=== PATIENT | female | born 1995 | race Caucasian/White ===

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

== ENCOUNTER 2017-07-13 20:00 | Inpatient (IN) | payer OTHER ==
[2017-07-13 21:25] LABS: Hematocrit 43 % (35-47); Hemoglobin 14.4 g/dl (12.0-16.0); Mean Corpuscular HGB Conc 33 g/dl (31-36); Mean Corpuscular Hemoglobin 28 pg (27-31); Mean Corpuscular Volume 83 fL (80-97); Mean Platelet Volume 8 um3 (7.4-10.4); Red Blood Count 5.18 10^6/ul (4.0-5.4); Red Cell Distribution Width 14 % (10.5-15); White Blood Count 14.6 10^3/ul (3.5-10.8)
[2017-07-13 21:36] LABS: ALT 18 U/L (7-52); AST 19 U/L (13-39); Albumin 4.5 g/dL (3.2-5.2); Alkaline Phosphatase 76 U/L (34-104); Anion Gap 9 mmol/L (2-11); BUN/Creatinine Ratio 14.7 (8-20); Blood Urea Nitrogen 11 mg/dL (6-24); CO2 Carbon Dioxide 23 mmol/L (22-32); Chloride 105 mmol/L (101-111); EGFR African American 126.7 (>60); EGFR Non-African American 98.5 (>60); Globulin 3.7 g/dL (2-4); Glucose 125 mg/dL (70-100); Potassium 3.6 mmol/L (3.5-5.0); Sodium 137 mmol/L (133-145); Total Protein 8.2 g/dL (6.4-8.9)
[2017-07-13 21:39] LABS: Acetaminophen < 15 mcg/mL; Alcohol < 10 mg/dL (<10); Salicylate < 2.50 mg/dL (<30)
[2017-07-13 23:32] LABS: Urine Bacteria 1+ (Absent); Urine Bilirubin Negative (Negative); Urine Glucose Negative (Negative); Urine Nitrite Negative (Negative)
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
[2017-07-13 23:49] LABS: Benzodiazepine Urine Screen None Detected (None Detect)
[2017-07-14] MEDS ORDERED: Acetaminophen TAB* 325 MG PO PRN (05:38)
[2017-07-14] MEDS ORDERED: Nicotine GUM* 2 MG PO PRN (05:38)
[2017-07-14] MEDS ORDERED: Al Hydrox/Mg Hydrox/Simet LIQ* 30 ML UDC PO PRN (05:38)
[2017-07-14] MEDS ORDERED: Nicotine Inhaler* 10 MG AMP INH PRN (05:38)
[2017-07-14] MEDS ORDERED: Mouth Piece, Nicotine* 1 EACH CARTRIDGE INH ONE (06:00)
[2017-07-14 08:18] VITALS: BP 102/41
--- NOTE | 2017-07-14 11:35 | PN ---
[facility]: Group Therapy Note - Service Type Service Type: [id number] Group Psychotherapy - Cognitive Behavioral Group Therapy ( CBT):Patient was attentive and participatory in CBT programming this morning, and remained in good behavioral control. Patient expressed positive insights regarding relevant treatment interventions and goals.
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
--- NOTE | 2017-07-15 06:23 | DS ---
CC: [facility]; Dr. 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 [place] II: Deferred. [place] III: Irritable bowel syndrome, gastroesophageal reflux disease and obesity. [place] IV: Stressors related to relationship break-up. [place] V: 67. CONDITION AT TIME OF DISCHARGE: Improved. The patient reports that her overdose attempt was impulsive in nature and immediately regretted the action. She induced vomiting and asked her grandmother to call the ambulance. She denies recent depression or anxiety. She denies stressors other than the sudden breakup of her relationship this past Wednesday. 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 She also wants to apply for a new job in the [employer] [facility] [place]. She lives with her grandmother and has for the past 15 years, she reports this to be a positive relationship. Her grandmother visited on the unit today and reports that she is not concerned about Katie's safety. She states that she has the rest of the week off from work and will be able to monitor her. She identifies that lots of family members have been supportive of Katie and encouraged her to avoid being dependant on relationships. Her grandmother, Breanna, reports that she has encouraged Katie to return to counseling to process her emotions. Katie is in agreement to do so and also to strengthen her coping mechanisms for stressful situations. MENTAL STATUS EXAM: The patient is obese, causally dressed in her own clothing. She is fairly well-kept. Hair dyed bright blonde and she is wearing glasses. She appears stated age. She is alert and oriented x3. She was cooperative with interview and answered questions fully. Her concentration is good. Her memory is 3/3. Her mood is "good." Affect is full. Speech is soft and articulate. Thought process is logical, coherent and goal-directed. Thought content: She denies SI, HI, , or SIB urges. She denies preoccupations or obsessions. Her insight and judgment is good. Her fund of knowledge is excellent. INSTRUCTIONS GIVEN TO THE PATIENT: She did not have any changes in her current outpatient medications. She will continue Prilosec through her primary care provider and [id number] Tums as needed. She denied nicotine replacement for tobacco cessation. DIET: Regular. ACTIVITY: Ambulation as tolerated. As stated above, she declined tobacco cessation and there are no pending labs or diagnostic studies at the time of discharge. HOSPITAL COURSE: A. Reason for admission: The patient was brought to the ER via ambulance after an overdose attempt on an old prescription of Trazodone. She immediately induced vomiting and asked her grandmother to call the ambulance. Upon arrival to the ER, she identified this was an impulsive decision and was agreeable to admission to the Psychiatric Unit in hopes of admission. B. Psychiatric treatment rendered: The patient was admitted to the Behavioral Services Unit on voluntary status. She is a full code status. She is placed on 15 minutes observation for safety, and treatment plan was initiated. Upon awakening, she participated in therapeutic milieu and groups this morning. She agreed to sign releases of information for outpatient providers. [facility] had prior outpatient care. She stated understanding and need to utilize [facility] if [facility] not [facility]. She also signed release for [facility]. She signed a release of information for primary care provider, Dr. Mike. While grandmother, Breanna, was visiting this policy writer sales reviewed safety precautions in the home including removing access to store, to [id number] medications. Breanna reported she had already removed medications from the bathroom and are locked in her bedroom. She denies there are weapons or firearms in the home. The patient was discharged to her grandmother by nursing staff and given discharge instructions. MIA LYONS NP [id number]/[facility] #: [id number] BRENT
== END 2017-07-14 14:05 | disposition home or self-care (01) | DRG 755 ==
LOC: ED 20:00 → BSU 07-14 05:38
PROVIDERS: ADMIT Psychiatry & Neurology Psychiatry; ATTEND Psychiatry & Neurology Psychiatry
PROC: GZHZZZZ Group Psychotherapy (ICD-10-PCS; principal; 2017-07-14)
DX: F43.24 Adjustment disorder with disturbance of conduct (principal); E66.01 Morbid (severe) obesity due to excess calories; J45.909 Unspecified asthma, uncomplicated; K21.9 Gastro-esophageal reflux disease without esophagitis; K58.9 Irritable bowel syndrome, unspecified; G43.909 Migraine, unspecified, not intractable, without status migrainosus; F90.9 Attention-deficit hyperactivity disorder, unspecified type; F41.0 Panic disorder [episodic paroxysmal anxiety]; F32.9 Major depressive disorder, single episode, unspecified; T43.212A Poisoning by selective serotonin and norepinephrine reuptake inhibitors, intentional self-harm, initial encounter; F43.10 Post-traumatic stress disorder, unspecified; F63.3 Trichotillomania; F50.89 Other specified eating disorder; F12.90 Cannabis use, unspecified, uncomplicated; Z72.0 Tobacco use; Z88.6 Allergy status to analgesic agent; Z88.0 Allergy status to penicillin; Z88.8 Allergy status to other drugs, medicaments and biological substances; Z91.018 Allergy to other foods; Z82.49 Family history of ischemic heart disease and other diseases of the circulatory system; Y92.009 Unspecified place in unspecified non-institutional (private) residence as the place of occurrence of the external cause; Z81.1 Family history of alcohol abuse and dependence; Z81.8 Family history of other mental and behavioral disorders
CPT/HCPCS: 36415; 80053; 80307; 80320; 80329; 81003; 81015; 83605; 84702; 85025; 87086; 93005; A9270-GY; G0480

== ENCOUNTER 2017-11-03 17:34 | Emergency (ER) | payer OTHER ==
[2017-11-03 17:47] VITALS: BP 146/67
[2017-11-03] MEDS ORDERED: Albuterol/Ipratropium NEB.SOL* Albuterol 2.5 MG/Ipratropium 0.5 MG 3 ML INH ONE (18:17)
[2017-11-03] MEDS ORDERED: Azithromycin TAB* 250 MG PO ONE (18:21)
--- NOTE | 2017-11-03 18:30 | UC ---
Respiratory Complaint HPI - HPI Summary HPI Summary: 22 year old female with history of asthma with no prior intubation here with fever and chills for the past one week but yesterday symptoms worsened in the past few days. Reports cough worse at night, non-stop, paroxysmal with associated one episode of vomiting. Her mother had recent URI that resolved. Otherwise no other complaints. - History of Current Complaint Chief Complaint: UCRespiratory Stated Complaint: COUGH, FEVER, TRIED Time Seen by Provider: 11/03/17 17:56 Hx Obtained From: Patient Hx Last Menstrual Period: 2 months ago Onset/Duration: Gradual Onset Timing: Constant Severity Initially: Mild Severity Currently: Moderate Character: Cough: Productive Aggravating Factors: Recumbent Position Alleviating Factors: Spontaneous Resolution Associated Signs And Symptoms: Positive: Fever, Chills, URI, Nasal Congestion, Sinus Discomfort - Allergies/Home Medications Allergies/Adverse Reactions: Allergies Allergy/AdvReac Type Severity Reaction Status Date / Time Penicillins Allergy Severe Hives Verified 11/03/17 17:45 Ketorolac Tromethamine Allergy Unknown Palpitation Verified 11/03/17 17:45 [From Toradol] s Adhesive Tape Allergy Rash Verified 11/03/17 17:45 Codeine Allergy GI Upset Verified 11/03/17 17:45 CRANBERRIES Allergy Hives Uncoded 11/03/17 17:45 PMH/Surg Hx/FS Hx/Imm Hx - Surgical History Surgical History: Yes Surgery Procedure, Year, and Place: 09/03 LAPARSCOPIC ABDOMEN. TONSILLECTOMY 2016 DR PALAFOX - Family History Known Family History: Positive: None, Hypertension - Social History Alcohol Use: None Substance Use Type: Marijuana Substance Use Comment - Amount & Last Used: OCCASIONALLY- LAST 2 MONTHS AGO Smoking Status (MU): Current Every Day Smoker Amount Used/How Often: 1/2 PPD Have You Smoked in the Last Year: Yes When Did the Patient Quit Smoking/Using Tobacco: 6 MONTHS AGO - Immunization History Most Recent Influenza Vaccination: "Years Ago" Most Recent Pneumonia Vaccination: Never Vaccination Up to Date: Yes Review of Systems Constitutional: Negative, Fever Respiratory: Cough Gastrointestinal: Vomiting Genitourinary: Negative All Other Systems Reviewed And Are Negative: Yes Physical Exam Triage Information Reviewed: Yes Appearance: Well-Appearing, No Pain Distress, Well-Nourished Vital Signs: Initial Vital Signs Temp 36.4 C 11/03/17 17:42 Pulse 120 11/03/17 17:42 Resp 18 11/03/17 17:42 BP 146/67 11/03/17 17:42 Pulse Ox 98 11/03/17 17:42 ENT: Positive: Pharyngeal erythema, Nasal congestion, Sinus tenderness Neck: Positive: Supple, Nontender, No Lymphadenopathy Respiratory: Positive: Chest non-tender, Lungs clear, No respiratory distress, Other: - Paroxysmal cough Cardiovascular: Positive: RRR, No Murmur Abdominal Exam: Normal Musculoskeletal Exam: Normal Neurological Exam: Normal UC Diagnostic Evaluation - Laboratory O2 Sat by Pulse Oximetry: 98 Respiratory Course/Dx - Course Course Of Treatment: Cough thats c/s pertussis. PCR pertusis given. Will treat with azithro for suspected pertussis +/- sinusitis - Differential Dx/Diagnosis Differential Diagnosis/HQI/PQRI: Laryngitis, Lower Resp Infection Provider Diagnoses: Cough Discharge - Discharge Plan Condition: Good Disposition: HOME Prescriptions: Azithromycin TAB* [Zithromax TAB (Z-ZACKARY) 250 mg #6 tabs] 250 mg PO DAILY #4 tab Benzonatate CAP* [Tessalon 100 MG CAP*] 100 mg PO TID PRN #20 cap PRN Reason: Cough Patient Education Materials: Pertussis (ED), Sinusitis (ED) Forms: *Work Release Referrals: Saadia Mike DO [Primary Care Provider] -
== END 2017-11-03 18:46 | disposition home or self-care (01) ==
LOC: UCEAST 17:34
DX: R05 Cough (principal); R50.9 Fever, unspecified; R11.10 Vomiting, unspecified; R09.81 Nasal congestion; Z88.5 Allergy status to narcotic agent; Z88.0 Allergy status to penicillin; Z91.048 Other nonmedicinal substance allergy status; Z87.891 Personal history of nicotine dependence
CPT/HCPCS: 87798; 99212; A9270-GY; G0463

== ENCOUNTER 2018-01-06 12:52 | Emergency (ER) | payer SELFPAY ==
[2018-01-06 13:06] VITALS: BP 134/84
--- OUTSIDE RECORDS SUMMARY | 2018-01-06 13:18 | XMS REPORT ---
:1995 External Reference #:[id number] Author Organization [facility] Address [address] [place] [address] [place] [address] Phone [phone] Care Team Providers Name Role Phone Saadia Mike DO Primary Care Physician Unavailable Payers Type Date Identification Numbers Payment Provider Subscriber Commercial Effective: Policy Number: Gwyn MGCastillo Jan Contreras 2017 [id number] Medicaid PayID: [id number] [address] [[phone]] [place] [address] Problems Date Description Provider Status Onset: 08/04/2011 Irregular periods Saadia Mike D.O. 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 Active known physiol cond Onset: 11/29/2015 Mild intermittent asthma Saadia Mike D.O. Active Onset: 11/29/2015 Body mass index 40+ - severely obese Saadia Mike D.O. Active Onset: 08/31/2016 Anxiety disorder Saadia Mike D.O. Active Onset: 08/31/2016 Depressive disorder Saadia Mike D.O. Active Onset: 08/31/2016 Functional abdominal pain syndrome Saadia Mike D.O. Active Onset: 09/22/2016 Allergic rhinitis Saadia Mike D.O. Active Onset: 09/22/2016 Generalized anxiety disorder Saadia Mike D.O. Active Onset: 08/04/2011 Morbid obesity Saadia Mike D.O. Inactive Inactive: 02/13/2013 Family History Date Family Member(s) Problem(s) Comments General Grandma does not know about her mother's history, but there is no history of DM or PCOS on dad's side.Jan knows that her MGM has DM. Social History Type Date Description Comments Lives With Negative For Older Sister Lives With Paternal Grandmother Smoking Light tobacco smoker (10 or fewer cigarettes/day) Allergies, Adverse Reactions, Alerts Date Description Reaction Status Severity Comments 08/10/2012 Penicillin active 08/10/2012 Cranberries Urticaria active 08/27/2014 Codeine Nausea and Vomiting active 09/30/2016 Cephalexin Urticaria active Mild 08/10/2012 NKDA inactive Medications Medication Date Status Form Strength Qnty SIG Indications Ordering Provider Ventolin HFA 12/08/ Active Aerosol 108(90Base 18gm 2 puffs J45.20 Saadia 2017 ) mcg/Act with spacer Rashid, every 4-6 D.O. hours as needed Azithromycin 12/08/ Hx Tablets 250mg 6tabs 2 tabs J22 Saadia 2017 - today then Rashid, tablet D.O. 2018 daily for 4 days Albuterol 12/26/ Active Nebulizer (2.5mg/3ML 75ml 1 unit dose J45.20 Saadia Sulfate 2014 ) 0.083% via Rashid, nebulizer D.O. every 4 hours as needed Nebulizer 12/26/ Active Kit 1units use as J45.20 Saadia Compressor/Jaquan 2014 directed alicia Mike/7' D.O. Tubing/Aerosol T/Mthpiece Aerochamber 12/23/ Active Misc 1units or similar J45.20 Saadia Plus Flow Vu 2011 use with dequan Mike as D.O. directed Mirena (52 MG) / Active IUD 20mcg/24HR N92.6 Unknown 0000 Cephalexin 09/23/ Hx Tablets 500mg 30tabs 1 by mouth K04.7 Saadia 2015 - three times Rashid, 09/30/ daily D.O. 2016 Clindamycin 09/22/ Hx Capsules 300mg 30caps 1 by mouth K04.7 Saadia HCL 2016 - three times Rashid, 09/23/ daily x 10 D.O. 2016 days Ondansetron 03/11/ Hx Tablets 8mg 10tabs 1 tab A08.39 Bj HCL 2016 - orally 8 Shrivasta 03/15/ hourly as Ewelina moe 2016 needed Citalopram 07/18/ Hx Tablets 40mg 90tabs 1/2 tablet F41.1 Saadia Hydrobromide 2014 - daily for 7 Rashid, 12/21/ days then D.O. 2017 increase to 1 tablet daily F32.9 Cefdinir 07/18/2015 - Hx Capsules 300mg 20caps 2 by mouth 463 Saadia 07/28/2015 once daily Rashid D.O. x 10d Citalopram 02/12/2015 - Hx Tablets 20mg 45tabs 1 1/2 by 300.02 Saadia Hydrobromide 07/18/2015 mouth Rashid, D.O. every day 311 Tamiflu 12/26/2014 - Hx Capsules 75mg 10caps 1 by mouth 487.1 Saadia 12/31/2014 twice daily Rashid, for 5 days D.O. Butalbital/Acetami 11/30/2014 - Hx Tablets 50-325 30tabs 1-2 tablets R51 [facility] nophen/Caffeine 04/03/2016 -40mg by mouth Rashid, every 6 D.O. hours as needed for headache Methylphenidate 11/30/2014 - Hx Tablets ER 18mg 30tabs 1 by mouth F90.2 Saadia HCL ER 09/22/2016 24HR every day Rashid D.O. Promethazine HCL 09/20/2014 - Hx Tablets 25mg 30tabs 1 by mouth Saadia 02/28/2015 every 6 Rashid, hours as D.O. needed for nausea/migr [facility] 09/14/2014 - Hx As 724.5 Saadia 11/29/2014 indicated Rashid, for back D.O. pain Trazodone HCL 08/27/2014 - Hx Tablets 100mg 60tabs 2 tablets 307.41 Saadia 11/29/2015 at bedtime Rashid DPattieOPattie Benefiber 12/14/2013 - Hx Powder 529gm use bid 789.07 Vazquez Oliveira. 05/11/2014 ALEX Vega M.D. Culturelle 12/14/2013 - Hx Capsules 30caps 1 po qd 789.07 Vazquez Y. 01/13/2014 ALEX Vega M.D. Tramadol HCL 12/01/2013 - Hx Tablets 50mg 60tabs 1 every 8 789.07 Saadia 12/23/2013 hours as Rashid, needed for D.O. pain Celexa 11/09/2013 - Hx Tablets 10mg 45tabs 1 1/2 300.02 [facility] 02/12/2015 tablet Rashid, daily D.O. 311 Celebrex 11/09/2013 - Hx Capsules 100mg 60caps 1 by mouth 789.07 [facility] 05/11/2014 twice daily Rashid, D.O. Hibiclens 10/11/2013 - Hx Liquid 4% 236ml Use to wash [facility] 10/12/2013 insicion site Rashid, twice daily D.O. then dress with antibiotic cream Lotrisone 10/11/2013 - Hx Cream 1-0.05% 45gm apply over to 110.9 [facility] 10/25/2013 rash twice Rashid, daily for 14 D.O. days Proair HFA 09/30/2013 - Hx Aerosol 108(90B 17gm 2 puffs with J45.20 [facility] 12/08/2017 ase) spacer every Rashid, mcg/Act 4-6 hours as D.O. needed Ondansetron HCL 09/26/2013 - Hx Tablets 8mg 60tabs 1 tablet R11.0 [facility] 02/27/2016 every 8 hours Rashid, as needed for D.O. nausea Cephalexin 09/26/2013 - Hx Capsules 500mg 30caps 1 by mouth 998.59 [facility] 10/06/2013 three daily Rashid, for 10 days D.O. Prilosec OTC 08/25/2013 - Hx Tablets DR 20mg 30tabs 1 by mouth R10.84 [facility] 02/27/2016 daily Rashid, D.O. Tramadol HCL 08/25/2013 - Hx Tablets 50mg 30tabs 1 every 8 789.07 [facility] 11/09/2013 hours as Rashid, needed for D.O. pain Clonazepam 08/25/2013 - Hx Tablets 0.5mg 30tabs 1 tablet 300.02 [facility] 09/04/2014 every 8 hours Rashid, as needed for D.O. anxiety Nexium 08/04/2013 - Hx Capsules DR 40mg 30caps 1 po qam 789.07 Vazquez OliveiraPattie 08/25/2013 ALEX Vega M.D. Jolessa 04/24/2013 - Hx Tablets 0.15-0. 91tabs use as N92.6 [facility] 09/22/2016 03mg directed Rashid, D.O. Omeprazole 04/24/2013 - Hx Tablets DR 20mg 28tabs Take 1 Tab 2 789.07 [facility] 08/04/2013 Times A Day Chip VegaP.N.P. Ondansetron Odt 02/03/2013 - Hx Tablets 8mg 20tabs 1 by mouth 787.03 [facility] 05/22/2013 Dispers every 6-8 [place], hours as C.P.N.P. needed for nausea or vomiting Prilosec OTC 02/03/2013 - Hx Tablets DR 20mg 28tabs 1 by mouth 789.07 [facility] 04/24/2013 twice daily Chip VegaP.N.P. Azithromycin 01/31/2013 - Hx Tablets 250mg 6tabs 2 tabs today 466.0 Unknown 02/05/2013 then 1 tablet daily for 4 days Prednisone 01/31/2013 - Hx Tablets 20mg 10tabs 2 tabs daily 466.0 Unknown 02/05/2013 for 5 days Trazodone HCL 08/10/2012 - Hx Tablets 50mg 30tabs 1/2 tab by 307.41 [facility] 08/27/2014 mouth at Rashid, bedtime D.O. Ventolin HFA 08/10/2012 - Hx Aerosol 108(90B 36gm or least 493.90 Saadia 09/30/2013 ase) expensive Rashid, mcg/ac alternative D.O. 2 puffs with spacer every 4-6 hours as needed Proair HFA 12/23/2011 - Hx Aerosol 108(90B 2units 2 puffs with 493.90 Saadia 08/10/2012 ase) spacer every Rashid, mcg/ac 4-6 hours as D.O. needed Seasonale 12/08/2011 - Hx Tablets 0.15-0. 84tabs use as 626.4 Saadia 04/24/2013 03mg directed Leelee Mike Maxair 12/08/2011 - Hx Aerosol 200mcg/ 14gm 1 puff q4h as 493.90 Saadia Autohaler 12/23/2011 Inh needed Leelee Mike Michelle 08/04/2011 - Hx Tablets 3-0.02m 28tabs 1 po qd 626.4 Saadia 12/08/2011 g Leelee Mike Oxistat 08/04/2011 - Hx Cream 1% 60gm Apply 110.5 Saadia 09/03/2011 topically qd Leelee Mike Econazole 07/30/2010 - Hx Cream 1% 30gm apply 110.5 [facility] Nitrate 08/13/2010 topically qd Rashid - bid Castillo.Nita Concerta 08/12/2006 - Hx Tablets ER 18mg 30tabs 1 by mouth 314.01 Saadia 11/30/2014 daily Leelee Mike Strattera - Hx Caps 40mg 30caps take 1 314.01 [facility] 12/23/2010 capsule once Rashid daily D.OPattie Hydrocodone/Kevin - Hx Tablets 5-325mg 30tabs 1-2 tablets Unknown taminophen 10/25/2013 by mouth every 6 hours as needed for pain Fiber Select - Hx Chewtabs 4 by mouth 789.07 Unknown Gummies 11/22/2016 daily Naproxen Sodium - Hx Tablets 550mg 30tabs take one [facility] 11/22/2016 tablet by Rashid, mouth twice a D.O. day as needed for pain Alavert - Hx Tablets 10mg Take as J30.9 Unknown 11/22/2017 Dispers needed for allergies Immunizations CPT Code Status Date Vaccine Lot # [id number] Given 08/27/2014 Hepatitis B Imm Age 0 to 19yr [id number] 56415 Given 08/27/2014 Meningococcal A,C,Y,W135 (Menactra) Preservative [id number] Free 05567 Given 12/03/2010 HPV 4 Gardasil 4 [id number] 53183 Given 07/29/2010 HPV 4 Gardasil 4 [id number] 28769 Given 07/08/2009 HPV 4 Gardasil 4 [id number] 15386 Given 07/08/2009 Meningococcal A,C,Y,W135 (Menactra) Preservative [id number] Free 44534 Given 07/08/2009 Varicella (Chicken Pox) Immunization [id number] 22050 Given 07/17/2008 TdaP Immunization Age 7+ [id number] 13003 Given 07/18/2001 DTaP Immunization under age 7 98223 Given 07/18/2001 Poliomyelitis Immunization 94616 Given 07/18/2001 MMR Virus Immunization 35224 Given 09/22/1998 DTaP Immunization under age 7 54949 Given 09/22/1998 Hib Vaccine 32078 Given 09/22/1998 Poliomyelitis Immunization 12026 Given 09/22/1998 MMR Virus Immunization 71102 Given 05/22/1998 Varicella (Chicken Pox) Immunization 39038 Given 1997 DTaP Immunization under age 7 90310 Given 1997 Hib Vaccine 78736 Given 1997 Poliomyelitis Immunization 84691 Given 1997 Hepatitis B Imm Age 0 to 19yr 13457 Given 1997 Poliomyelitis Immunization 94107 Given 1997 DTaP Immunization under age 7 11965 Given 1997 Hib Vaccine 03744 Given 1997 DTaP Immunization under age 7 60715 Given 1997 Hib Vaccine 48346 Given 1997 Hepatitis B Imm Age 0 to 19yr 95661 Given 1997 Poliomyelitis Immunization 74657 Given 1997 Hepatitis B Imm Age 0 to 19yr 71734 Refused 11/29/2015 Flu Inj Quadrivalent .5ml Preserve Free Vital Signs Date Vital Result Comment 12/08/2017 Weight 274.00 lb with boots Weight in kg's 124.286 Body Temperature 99.7 F Heart Rate 93 /min O2 % BldC Oximetry 98 % 09/22/2016 Height 63.75 inches 5'3.75" Weight 302.00 lb Weight in kg's 136.987 BMI (Body Mass Index) 52.2 kg/m2 Body Mass Index Percentile 3 % 03/11/2016 Weight 302.00 lb Weight in kg's 136.987 Weight Percentile >97th Body Temperature 98.7 F Heart Rate 72 /min BP Systolic 138 mmHg BP Diastolic 82 mmHg Blood Pressure Percentile 0 % 11/29/2015 Height 63.75 inches 5'3.75" Height Percentile 42 % Weight 304.00 lb Weight in kg's 137.894 Weight Percentile >97th Heart Rate 111 /min BP Systolic 132 mmHg BP Diastolic 73 mmHg Blood Pressure Percentile 97 % BMI (Body Mass Index) 52.6 kg/m2 Body Mass Index Percentile 99 % O2 % BldC Oximetry 98 % 07/18/2015 Height 64 inches 5'4" Height Percentile 46 % Weight 305.38 lb Weight in kg's 138.518 Weight Percentile >97th Heart Rate 106 /min BP Systolic 135 mmHg BP Diastolic 76 mmHg Blood Pressure Percentile 98 % BMI (Body Mass Index) 52.4 kg/m2 Body Mass Index Percentile 99 % 05/08/2015 Height 63.75 inches 5'3.75" Height Percentile 43 % Weight 304.00 lb Weight in kg's 137.894 Weight Percentile >97th Heart Rate 94 /min BP Systolic 144 mmHg BP Diastolic 76 mmHg Blood Pressure Percentile 99 % BMI (Body Mass Index) 52.6 kg/m2 Body Mass Index Percentile 99 % 12/26/2014 Weight 289.00 lb Weight in kg's 131.090 Weight Percentile >97th Body Temperature 99.6 F Heart Rate 110 /min O2 % BldC Oximetry 97 % 11/30/2014 Weight 292.00 lb Weight in kg's 132.451 Weight Percentile >97th Body Temperature 98.2 F Heart Rate 68 /min 09/14/2014 Weight 284.50 lb without leg brace Weight in kg's 129.049 Weight Percentile >97th Heart Rate 100 /min BP Systolic 115 mmHg BP Diastolic 78 mmHg Blood Pressure Percentile 0 % 08/27/2014 Height 64 inches 5'4" Height Percentile 48 % Weight 278.50 lb Weight in kg's 126.328 Weight Percentile >97th Heart Rate 110 /min BP Systolic 125 mmHg BP Diastolic 72 mmHg Blood Pressure Percentile 89 % BMI (Body Mass Index) 47.8 kg/m2 Body Mass Index Percentile 99 % 05/11/2014 Height 64 inches 5'4" Height Percentile 48 % Weight 267.00 lb Weight in kg's 121.111 Weight Percentile >97th Body Temperature 99.6 F Heart Rate 104 /min BP Systolic 119 mmHg BP Diastolic 79 mmHg Blood Pressure Percentile 75 % BMI (Body Mass Index) 45.8 kg/m2 Body Mass Index Percentile 99 % 03/08/2014 Height 64 inches 5'4" Height Percentile 48 % Weight 264.00 lb Weight in kg's 119.75 Weight Percentile >97th Heart Rate 122 /min BP Systolic 125 mmHg BP Diastolic 81 mmHg Blood Pressure Percentile 89 % BMI (Body Mass Index) 45.3 kg/m2 Body Mass Index Percentile 99 % 01/18/2014 Weight 254.00 lb Weight in kg's 115.21 Weight Percentile >97th Body Temperature 98.2 F BP Systolic 122 mmHg BP Diastolic 89 mmHg Blood Pressure Percentile 0 % 01/09/2014 Height 64 inches 5'4" Height Percentile 48 % Weight 255.00 lb Weight in kg's 115.66 Weight Percentile >97th Body Temperature 99.3 F Heart Rate 108 /min BP Systolic 128 mmHg BP Diastolic 82 mmHg Blood Pressure Percentile 94 % BMI (Body Mass Index) 43.8 kg/m2 Body Mass Index Percentile 99 % O2 % BldC Oximetry 97 % 12/14/2013 Height 64.25 inches 5'4.25" Height Percentile 52 % Weight 254.00 lb Weight in kg's 115.21 Weight Percentile >97th Heart Rate 102 /min BP Systolic 138 mmHg BP Diastolic 87 mmHg Blood Pressure Percentile 99 % BMI (Body Mass Index) 43.3 kg/m2 Body Mass Index Percentile 99 % 12/01/2013 Height 64.25 inches 5'4.25" Height Percentile 52 % Weight 249.00 lb Weight in kg's 112.94 Weight Percentile >97th Heart Rate 92 /min BP Systolic 128 mmHg BP Diastolic 81 mmHg Blood Pressure Percentile 93 % BMI (Body Mass Index) 42.4 kg/m2 Body Mass Index Percentile 99 % 11/09/2013 Weight 246.00 lb Weight in kg's 111.586 Weight Percentile >97th Body Temperature 97.8 F Heart Rate 91 /min BP Systolic 125 mmHg BP Diastolic 83 mmHg Blood Pressure Percentile 0 % 10/11/2013 Weight 249.00 lb Weight in kg's 112.946 Weight Percentile >97th Body Temperature 98.1 F BP Systolic 132 mmHg BP Diastolic 78 mmHg Blood Pressure Percentile 0 % 09/26/2013 Weight 244.00 lb Weight in kg's 110.678 Weight Percentile >97th Body Temperature 98.1 F Heart Rate 99 /min BP Systolic 127 mmHg BP Diastolic 80 mmHg Blood Pressure Percentile 0 % 08/25/2013 Height 64 inches 5'4" Height Percentile 49 % Weight 244.00 lb Weight in kg's 110.67 Weight Percentile >97th Heart Rate 89 /min BP Systolic 118 mmHg BP Diastolic 82 mmHg Blood Pressure Percentile 73 % BMI (Body Mass Index) 41.9 kg/m2 Body Mass Index Percentile 99 % 08/09/2013 Height 64.25 inches 5'4.25" Height Percentile 53 % Weight 246.00 lb Weight in kg's 111.58 Weight Percentile >97th Heart Rate 104 /min BP Systolic 130 mmHg BP Diastolic 72 mmHg Blood Pressure Percentile 95 % BMI (Body Mass Index) 41.9 kg/m2 Body Mass Index Percentile 99 % 08/04/2013 Weight 246.00 lb Weight in kg's 111.58 Weight Percentile >97th Body Temperature 96.8 F Heart Rate 100 /min BP Systolic 130 mmHg BP Diastolic 80 mmHg Blood Pressure Percentile 0 % O2 % BldC Oximetry 97 % 02/13/2013 Height 64 inches 5'4" Height Percentile 51 % Weight 239.00 lb Weight in kg's 108.410 Weight Percentile >97th Heart Rate 104 /min BP Systolic 136 mmHg BP Diastolic 80 mmHg Blood Pressure Percentile 99 % BMI (Body Mass Index) 41.0 kg/m2 Body Mass Index Percentile 99 % 02/03/2013 Weight 237.50 lb in gown Weight in kg's 107.730 Weight Percentile >97th Body Temperature 97.9 F Blood Pressure Percentile 0 % 08/10/2012 Height 64 inches 5'4" Height Percentile 53 % Weight 234.00 lb Weight in kg's 106.142 Weight Percentile >97th Heart Rate 76 /min BP Systolic 136 mmHg BP Diastolic 96 mmHg Blood Pressure Percentile 99 % BMI (Body Mass Index) 40.2 kg/m2 Body Mass Index Percentile 99 % 03/08/2012 Height 64 inches 5'4" Height Percentile 56 % Weight 252.00 lb Weight in kg's 114.307 Weight Percentile >97th BP Systolic 140 mmHg BP Diastolic 78 mmHg Blood Pressure Percentile 99 % BMI (Body Mass Index) 43.3 kg/m2 Body Mass Index Percentile 99 % 12/08/2011 Height 64 inches 5'4" Height Percentile 58 % Weight 243.00 lb Weight in kg's 110.225 Weight Percentile >97th BP Systolic 140 mmHg BP Diastolic 76 mmHg Blood Pressure Percentile 99 % BMI (Body Mass Index) 41.7 kg/m2 Body Mass Index Percentile 99 % 10/05/2011 Height 64 inches 5'4" Height Percentile 60 % Weight 247.00 lb Weight in kg's 112.039 Weight Percentile >97th BP Systolic 140 mmHg BP Diastolic 84 mmHg Blood Pressure Percentile 99 % BMI (Body Mass Index) 42.4 kg/m2 Body Mass Index Percentile 99 % 08/04/2011 Height 64 inches 5'4" Height Percentile 61 % Weight 245.00 lb Weight in kg's 111.132 Weight Percentile >97th Heart Rate 88 /min BP Systolic 98 mmHg BP Diastolic 50 mmHg Blood Pressure Percentile 12 % BMI (Body Mass Index) 42.0 kg/m2 Body Mass Index Percentile 99 % 07/29/2010 Height 63.25 inches 5'3.25" Height Percentile 67 % Weight 237.00 lb Weight in kg's 107.503 Weight Percentile >97th Heart Rate 80 /min BP Systolic 120 mmHg BP Diastolic 76 mmHg Blood Pressure Percentile 85 % BMI (Body Mass Index) 41.6 kg/m2 Body Mass Index Percentile 99 % 07/08/2009 Height 62.25 inches 5'2.25" Height Percentile 80 % Weight 198.00 lb Weight in kg's 89.813 Weight Percentile >97th Heart Rate 64 /min BP Systolic 130 mmHg BP Diastolic 70 mmHg Blood Pressure Percentile 98 % BMI (Body Mass Index) 35.9 kg/m2 Body Mass Index Percentile 99 % 01/09/2009 Height 62.5 inches 5'2.50" Height Percentile 91 % Weight 179.00 lb Weight in kg's 81.194 Weight Percentile >97th BP Systolic 114 mmHg BP Diastolic 68 mmHg BMI (Body Mass Index) 32.2 kg/m2 Body Mass Index Percentile 97 % 04/06/2008 Weight 156.00 lb Weight in kg's 70.762 Weight Percentile >97th BP Systolic 140 mmHg BP Diastolic 70 mmHg 02/08/2008 Weight 145.00 lb Weight in kg's 65.772 Weight Percentile >95th Body Temperature 99.0 F 08/04/2007 Height 58.5 inches 4'10.50" Height Percentile 91 % Weight 126.00 lb Weight in kg's 57.154 Weight Percentile >95th Heart Rate 96 /min BP Systolic 98 mmHg BP Diastolic 54 mmHg BMI (Body Mass Index) 25.9 kg/m2 Body Mass Index Percentile 95 % 12/02/2004 Height 50 inches 4'2" Height Percentile 68 % Weight 65.00 lb Weight in kg's 29.484 Weight Percentile 89th BMI (Body Mass Index) 18.3 kg/m2 Body Mass Index Percentile 92 % Results Test Date Test Result H/L Range Note Bordetella PCR 11/03/2017 Bordetella Source Nasopharyngeal s <SEE 1 NOTE> Bordetella pertussis PCR Negative 2 Bordetella parapertussis PCR Negative 3 Urine Drug SCR ED 07/13/2017 Amphetamine Ur Screen None Detected None Detect & [facility] Barbiturates Urine Screen None Detected None Detect Benzodiazepine Urine Screen None Detected None Detect Urine Cannabinoids Screen None Detected None Detect Urine Cocaine Screen None Detected None Detect Urine Opiates Screen None Detected None Detect Urine Phencyclidine Screen None Detected None Detect 4 CBC Auto Diff 07/13/2017 White Blood Count 14.6 10^3/uL High 3.5-10.8 Red Blood Count 5.18 10^6/uL 4.0-5.4 Hemoglobin 14.4 g/dL 12.0-16.0 Hematocrit 43 % 35-47 Mean Corpuscular Volume 83 fL 80-97 Mean Corpuscular Hemoglobin 28 pg 27-31 Mean Corpuscular HGB Conc 33 g/dL 31-36 Red Cell Distribution Width 14 % 10.5-15 Platelet Count 377 10^3/uL 150-450 Mean Platelet Volume 8 um3 7.4-10.4 Abs Neutrophils 11.1 10^3/uL High 1.5-7.7 Abs Lymphocytes 2.1 10^3/uL 1.0-4.8 Abs Monocytes 0.9 10^3/uL High 0-0.8 Abs Eosinophils 0.5 10^3/uL 0-0.6 Abs Basophils 0 10^3/uL 0-0.2 Abs Nucleated RBC 0 10^3/uL Granulocyte % 75.7 % 38-83 Lymphocyte % 14.4 % Low 25-47 Monocyte % 6.0 % 1-9 Eosinophil % 3.6 % 0-6 Basophil % 0.3 % 0-2 Nucleated Red Blood Cells % 0 Laboratory test finding 07/13/2017 Lactic Acid 2.1 mmol/L High 0.5-2.0 5 Comp Metabolic Panel 07/13/2017 Sodium 137 mmol/L 133-145 Potassium 3.6 mmol/L 3.5-5.0 Chloride 105 mmol/L 101-111 Co2 Carbon Dioxide 23 mmol/L 22-32 Anion Gap 9 mmol/L 2-11 Glucose 125 mg/dL High 70-100 Blood Urea Nitrogen 11 mg/dL 6-24 Creatinine 0.75 mg/dL 0.51-0.95 BUN/Creatinine Ratio 14.7 8-20 Calcium 10.0 mg/dL 8.6-10.3 Total Protein 8.2 g/dL 6.4-8.9 Albumin 4.5 g/dL 3.2-5.2 Globulin 3.7 g/dL 2-4 Albumin/Globulin Ratio 1.2 1-3 Total Bilirubin 0.30 mg/dL 0.2-1.0 Alkaline Phosphatase 76 U/L 34-104 Alt 18 U/L 7-52 Ast 19 U/L 13-39 Egfr Non- 98.5 >60 Egfr 126.7 >60 6 Laboratory test finding 07/13/2017 Acetaminophen < 15 g/mL 7 Alcohol < 10 mg/dL <10 Salicylate < 2.50 mg/dL <30 HCG < 0.60 mIU/mL 8 Urine Culture And Sensitivities SEE RESULT BELOW 9 Laboratory test 05/27/2016 (HCG) Negative Negative 10 finding Urine Laboratory test 04/01/2016 Rapid Strep A SEE RESULT BELOW 11 finding Laboratory test 04/01/2016 Rapid Strep Negative Negative 12 finding Molecular Laboratory test 04/01/2016 Monospot Negative Negative finding Xenia Cooper Virus (Ebv), IgG Negative Negative 13 CBC Auto Diff 04/01/2016 White Blood Count 15.4 10^3/uL High 3.5-10.8 Red Blood Count 4.66 10^6/uL 4.0-5.4 Hemoglobin 12.8 g/dL 12.0-16.0 Hematocrit 38 % 35-47 Mean Corpuscular Volume 82 fL 80-97 Mean Corpuscular Hemoglobin 28 pg 27-31 Mean Corpuscular HGB Conc 34 g/dL 31-36 Red Cell Distribution Width 14 % 10.5-15 Platelet Count 498 10^3/uL High 150-450 Mean Platelet Volume 7 um3 Low 7.4-10.4 Abs Neutrophils 10.9 10^3/uL High 1.5-7.7 Abs Lymphocytes 3.0 10^3/uL 1.0-4.8 Abs Monocytes 1.3 10^3/uL High 0-0.8 Abs Eosinophils 0.1 10^3/uL 0-0.6 Abs Basophils 0.1 10^3/uL 0-0.2 Abs Nucleated RBC 0.01 10^3/uL Granulocyte % 70.7 % 38-83 Lymphocyte % 19.7 % Low 25-47 Monocyte % 8.4 % 1-9 Eosinophil % 0.7 % 0-6 Basophil % 0.5 % 0-2 Nucleated Red Blood Cells % 0 CBC Auto Diff 11/30/2015 White Blood Count 14.4 10^3/uL High 3.5-10.8 Red Blood Count 4.99 10^6/uL 4.0-5.4 Hemoglobin 13.8 g/dL 12.0-16.0 Hematocrit 42 % 35-47 Mean Corpuscular Volume 85 fL 80-97 Mean Corpuscular Hemoglobin 28 pg 27-31 Mean Corpuscular HGB Conc 33 g/dL 31-36 Red Cell Distribution Width 13 % 10.5-15 Platelet Count 496 10^3/uL High 150-450 Mean Platelet Volume 7 um3 Low 7.4-10.4 Abs Neutrophils 8.2 10^3/uL High 1.5-7.7 Abs Lymphocytes 4.7 10^3/uL 1.0-4.8 Abs Monocytes 1.3 10^3/uL High 0-0.8 Abs Eosinophils 0.1 10^3/uL 0-0.6 Abs Basophils 0.1 10^3/uL 0-0.2 Abs Nucleated RBC 0 10^3/uL Granulocyte % 57.2 % 38-83 Lymphocyte % 32.7 % 25-47 Monocyte % 8.9 % 1-9 Eosinophil % 0.8 % 0-6 Basophil % 0.4 % 0-2 Nucleated Red Blood Cells % 0 Comp Metabolic Panel 11/30/2015 Sodium 137 mmol/L 133-145 Potassium 4.4 mmol/L 3.5-5.0 Chloride 104 mmol/L 101-111 Co2 Carbon Dioxide 25 mmol/L 22-32 Anion Gap 8 mmol/L 2-11 Glucose 82 mg/dL 70-100 Blood Urea Nitrogen 6 mg/dL 6-24 Creatinine 0.63 mg/dL 0.51-0.95 BUN/Creatinine Ratio 9.5 8-20 Calcium 9.7 mg/dL 8.6-10.3 Total Protein 7.6 g/dL 6.4-8.9 Albumin 4.4 g/dL 3.2-5.2 Globulin 3.2 g/dL 2-4 Albumin/Globulin Ratio 1.4 1-3 Total Bilirubin 0.30 mg/dL 0.2-1.0 Alkaline Phosphatase 71 U/L 34-104 Alt 23 U/L 7-52 Ast 19 U/L 13-39 Egfr Non- 123.1 >60 Egfr 158.3 >60 14 Laboratory test finding 11/30/2015 TSH (Thyroid Stim Horm) 4.30 ?IU/mL 0.34-5.60 T3 Total 1.75 ng/mL 0.87-1.78 Free T4 (Free Thyroxine) 0.92 ng/mL 0.61-1.12 Insulin Level 32.1 mcIU/mL 2.6 - 24.9 15 Lipid Profile (Trig/Chol/HDL) 11/30/2015 Triglycerides 69 mg/dL 16 Cholesterol 105 mg/dL 17 HDL Cholesterol 30.3 mg/dL 18 LDL Cholesterol 61 mg/dL 19 GC/Chlamydia Amplified Rna 11/29/2015 Chlamydia trachomatis Rna Negative Negative Neisseria gonorrhoeae (GC) Rna Negative Negative Laboratory test finding 07/18/2015 Throat Culture Quick Strep negative Throat Culture (Overnight) negative Rapid Influenza A B Antigen 01/16/2015 Rapid Influenza A B (SEE NOTE) 20 Antigen Urinalysis Profile 01/02/2015 Urine Color Yellow Urine Appearance Cloudy Urine Specific [place] 1.021 1.010-1.030 Urine pH 5.0 5-9 Urine Urobilinogen Negative Negative Urine Ketones Negative Negative Urine Protein Negative Negative Urine Leukocytes Negative Negative Urine Blood Negative Negative Urine Nitrite Negative Negative Urine Bilirubin Negative Negative Urine Glucose Negative Negative Urine Drug SCR ED 01/02/2015 Amphetamine Ur Screen None Detected None Detect & [facility] Barbiturates Urine Screen None Detected None Detect Benzodiazepine Urine Screen None Detected None Detect Urine Cannabinoids Screen None Detected None Detect Urine Cocaine Screen None Detected None Detect Urine Opiates Screen None Detected None Detect Urine Phencyclidine Screen None Detected None Detect 21 Comp Metabolic Panel 11/29/2014 Sodium 139 mmol/L 133-145 Potassium 3.7 mmol/L 3.5-5.0 Chloride 108 mmol/L 101-111 Co2 Carbon Dioxide 23 mmol/L 22-32 Anion Gap 8 mmol/L 2-11 Glucose 82 mg/dL 70-100 Blood Urea Nitrogen 10 mg/dL 6-24 Creatinine 0.62 mg/dL 0.51-0.95 BUN/Creatinine Ratio 16.1 8-20 Calcium 9.3 mg/dL 8.6-10.3 Total Protein 7.2 g/dL 6.4-8.9 Albumin 3.9 g/dL 3.2-5.2 Globulin 3.3 g/dL 2-4 Albumin/Globulin Ratio 1.2 1-3 Total Bilirubin 0.20 mg/dL 0.2-1.0 Alkaline Phosphatase 55 U/L 34-104 Alt 17 U/L 7-52 Ast 15 U/L 13-39 CBC Auto Diff 11/29/2014 White Blood Count 15.9 10^3/uL High 4.8-10.8 Red Blood Count 4.66 10^6/uL 4.0-5.4 Hemoglobin 13.0 g/dL 12.0-16.0 Hematocrit 40 % 35-47 Mean Corpuscular Volume 85 fL 80-97 Mean Corpuscular Hemoglobin 28 pg 27-31 Mean Corpuscular HGB Conc 33 g/dL 31-36 Red Cell Distribution Width 13 % 10.5-15 Platelet Count 430 10^3/uL 150-450 Mean Platelet Volume 8 um3 7.4-10.4 Abs Neutrophils 9.4 10^3/uL High 1.5-7.7 Abs Lymphocytes 4.9 10^3/uL High 1.0-4.8 Abs Monocytes 1.4 10^3/uL High 0-0.8 Abs Eosinophils 0 10^3/uL 0-0.6 Abs Basophils 0.1 10^3/uL 0-0.2 Abs Nucleated RBC 0.01 10^3/uL Granulocyte % 59.0 % 38-83 Lymphocyte % 31.1 % 25-47 Monocyte % 9.1 % High 1-9 Eosinophil % 0.1 % 0-6 Basophil % 0.7 % 0-2 Nucleated Red Blood Cells % 0 Laboratory test finding 11/29/2014 Carbon Monoxide 2.7 % High 0.5-1.5 Laboratory test finding 11/28/2014 CSF Glucose 53 mg/dL 40-70 22, 23 CSF Total Protein 30 mg/dL 15-45 22, 24 CSF Culture & 11/28/2014 CSF Culture Gram (SEE NOTE) 22, 25 Sensitivity Stain Body Fluid Cell Count 11/28/2014 Body Fluid Source Cerebral Spinal 22 Body Fluid Appearance Clear 22 Body Fluid Color Colorless 22 CSF Tube # Tube 4 22 Body Fluid Volume 1.0 mL 22 Body Fluid WBC 4 22 Body Fluid RBC 1 22 Body Fluid Lymph 12 22 Body Fluid Total Cells Counted 12 22 Fluid Reviewed By MD (SEE NOTE) 22, 26 Blood Culture 11/27/2014 Blood Culture (SEE NOTE) 27 CBC Auto Diff 11/27/2014 White Blood Count 16.2 10^3/uL High 4.8-10.8 Red Blood Count 4.92 10^6/uL 4.0-5.4 Hemoglobin 13.7 g/dL 12.0-16.0 Hematocrit 41 % 35-47 Mean Corpuscular Volume 84 fL 80-97 Mean Corpuscular Hemoglobin 28 pg 27-31 Mean Corpuscular HGB Conc 33 g/dL 31-36 Red Cell Distribution Width 14 % 10.5-15 Platelet Count 506 10^3/uL High 150-450 Mean Platelet Volume 8 um3 7.4-10.4 Abs Neutrophils 9.5 10^3/uL High 1.5-7.7 Abs Lymphocytes 5.1 10^3/uL High 1.0-4.8 Abs Monocytes 1.2 10^3/uL High 0-0.8 Abs Eosinophils 0.2 10^3/uL 0-0.6 Abs Basophils 0.1 10^3/uL 0-0.2 Abs Nucleated RBC 0 10^3/uL Granulocyte % 58.7 % 38-83 Lymphocyte % 31.5 % 25-47 Monocyte % 7.7 % 1-9 Eosinophil % 1.4 % 0-6 Basophil % 0.7 % 0-2 Nucleated Red Blood Cells % 0 Comp Metabolic Panel 11/27/2014 Sodium 137 mmol/L 133-145 Potassium 3.8 mmol/L 3.5-5.0 Chloride 104 mmol/L 101-111 Co2 Carbon Dioxide 24 mmol/L 22-32 Anion Gap 9 mmol/L 2-11 Glucose 102 mg/dL High 70-100 Blood Urea Nitrogen 8 mg/dL 6-24 Creatinine 0.67 mg/dL 0.51-0.95 BUN/Creatinine Ratio 11.9 8-20 Calcium 10.0 mg/dL 8.6-10.3 Total Protein 7.5 g/dL 6.4-8.9 Albumin 4.3 g/dL 3.2-5.2 Globulin 3.2 g/dL 2-4 Albumin/Globulin Ratio 1.3 1-3 Total Bilirubin 0.20 mg/dL 0.2-1.0 Alkaline Phosphatase 66 U/L 34-104 Alt 17 U/L 7-52 Ast 16 U/L 13-39 Laboratory test finding 11/27/2014 Serum Negative Negative 28 Rapid Influenza A B 11/27/2014 Rapid Influenza A B (SEE NOTE) 29 Antigen Antigen Laboratory test finding 09/15/2014 Lipase 28 U/L 11.0-82.0 C Reactive Protein 9.98 mg/L High < 5.00 30 Comp Metabolic Panel 09/15/2014 Sodium 135 mmol/L 133-145 Potassium 3.6 mmol/L Low 3.7-5.6 Chloride 104 mmol/L 101-111 Co2 Carbon Dioxide 24 mmol/L 22-32 Anion Gap 7 mmol/L 2-11 Glucose 87 mg/dL 70-100 Blood Urea Nitrogen 11 mg/dL 6-24 Creatinine 0.63 mg/dL 0.51-0.95 BUN/Creatinine Ratio 17.5 8-20 Calcium 9.5 mg/dL 8.6-10.3 Total Protein 7.6 g/dL 6.4-8.9 Albumin 4.1 g/dL 3.2-5.2 Globulin 3.5 g/dL 2-4 Albumin/Globulin Ratio 1.2 1-3 Total Bilirubin 0.30 mg/dL 0.2-1.0 Alkaline Phosphatase 62 U/L 34-104 Alt 19 U/L 7-52 Ast 16 U/L 13-39 CBC Auto Diff 09/15/2014 White Blood Count 13.9 10^3/uL High 4.8-10.8 Red Blood Count 4.66 10^6/uL 4.0-5.4 Hemoglobin 13.1 g/dL 12.0-16.0 Hematocrit 39 % 35-47 Mean Corpuscular Volume 83 fL 80-97 Mean Corpuscular Hemoglobin 28 pg 27-31 Mean Corpuscular HGB Conc 34 g/dL 31-36 Red Cell Distribution Width 13 % 10.5-15 Platelet Count 470 10^3/uL High 150-450 Mean Platelet Volume 7 um3 Low 7.4-10.4 Abs Neutrophils 8.8 10^3/uL High 1.5-7.7 Abs Lymphocytes 3.8 10^3/uL 1.0-4.8 Abs Monocytes 1.0 10^3/uL High 0-0.8 Abs Eosinophils 0.2 10^3/uL 0-0.6 Abs Basophils 0.1 10^3/uL 0-0.2 Abs Nucleated RBC 0 10^3/uL Granulocyte % 63.6 % 38-83 Lymphocyte % 27.6 % 25-47 Monocyte % 6.9 % 1-9 Eosinophil % 1.1 % 0-6 Basophil % 0.8 % 0-2 Nucleated Red Blood Cells % 0 Urinalysis Profile 09/15/2014 Urine Color Yellow Urine Appearance Cloudy Urine Specific [place] 1.028 1.010-1.030 Urine pH 5.0 5-9 Urine Urobilinogen Negative Negative Urine Ketones Trace Negative Urine Protein Negative Negative Urine Leukocytes Negative Negative Urine Blood Negative Negative * * Negative 31 Urine Nitrite Negative Negative Urine Bilirubin Negative Negative Urine Glucose Negative Negative Laboratory test finding 09/14/2014 .Urine Culture In Neg Per Dr. JESSICA Trevizo Laboratory test finding 08/31/2014 Lisette (Anti-Nuclear Negative Negative AB) Screen Rheumatoid Factor <15 IU/mL <15 32 CBC Auto Diff 08/27/2014 White Blood Count 13.8 10^3/uL High 4.8-10.8 Red Blood Count 5.04 10^6/uL 4.0-5.4 Hemoglobin 14.1 g/dL 12.0-16.0 Hematocrit 42 % 35-47 Mean Corpuscular Volume 84 fL 80-97 Mean Corpuscular Hemoglobin 28 pg 27-31 Mean Corpuscular HGB Conc 33 g/dL 31-36 Red Cell Distribution Width 14 % 10.5-15 Platelet Count 555 10^3/uL High 150-450 Mean Platelet Volume 8 um3 7.4-10.4 Abs Neutrophils 7.9 10^3/uL High 1.5-7.7 Abs Lymphocytes 4.3 10^3/uL 1.0-4.8 Abs Monocytes 1.2 10^3/uL High 0-0.8 Abs Eosinophils 0.2 10^3/uL 0-0.6 Abs Basophils 0 10^3/uL 0-0.2 Abs Nucleated RBC 0.01 10^3/uL Granulocyte % 57.5 % 38-83 Lymphocyte % 31.5 % 25-47 Monocyte % 9.0 % 1-9 Eosinophil % 1.7 % 0-6 Basophil % 0.3 % 0-2 Nucleated Red Blood Cells % 0 Comp Metabolic Panel 08/27/2014 Sodium 136 mmol/L 133-145 Potassium 3.9 mmol/L 3.7-5.6 Chloride 104 mmol/L 101-111 Co2 Carbon Dioxide 23 mmol/L 22-32 Anion Gap 9 mmol/L 2-11 Glucose 81 mg/dL 70-100 Blood Urea Nitrogen 11 mg/dL 6-24 Creatinine 0.64 mg/dL 0.51-0.95 BUN/Creatinine Ratio 17.2 8-20 Calcium 10.0 mg/dL 8.6-10.3 Total Protein 8.4 g/dL 6.4-8.9 Albumin 4.5 g/dL 3.2-5.2 Globulin 3.9 g/dL 2-4 Albumin/Globulin Ratio 1.2 1-3 Total Bilirubin 0.30 mg/dL 0.2-1.0 Alkaline Phosphatase 67 U/L 34-104 Alt 29 U/L 7-52 Ast 22 U/L 13-39 Laboratory test finding 08/27/2014 Hemoglobin A1c 5.4 % Less than 6.0 33 TSH (Thyroid Stimulating Horm) 3.14 IU/mL 0.34-5.60 Free T4 0.82 ng/mL 0.61-1.12 Total T3 1.56 ng/mL 0.87-1.78 Insulin Level 35.3 mcIU/mL 2.6 - 24.9 34 Erythrocyte Sed Rate 28 mm/Hr High 0-14 Laboratory test finding 12/19/2013 .Hemocult in house neg Urinalysis 10/05/2013 Urine Color Yellow Urine Appearance Clear Urine Specific [place] 1.020 1.010-1.030 Urine Esterase Negative Negative Urine Nitrate Negative Negative Urine Urobilinogen Negative E.U./dL Negative Urine Protein Negative mg/dL Negative Urine pH 7.0 5-9 Urine Blood Negative Negative Urine Ketones Negative mg/dL Negative Urine Bilirubin Negative Negative Urine Glucose Negative mg/dL Negative CBC Auto Diff 10/05/2013 White Blood Count 10.5 10^3/uL 4.8-10.8 Red Blood Count 4.50 10^6/uL 4.0-5.4 Hemoglobin 13.2 g/dL 12.0-16.0 Hematocrit 38 % 35-47 Mean Corpuscular Volume 84 fL 80-97 Mean Corpuscular Hemoglobin 29 pg 27-31 Mean Corpuscular HGB Conc 35 g/dL 31-36 Red Cell Distribution Width 13 % 10.5-15 Platelet Count 502 10^3/uL High 150-450 Mean Platelet Volume 8 um3 7.4-10.4 Abs Neutrophils 6.1 10^3/uL 1.5-7.7 Abs Lymphocytes 3.2 10^3/uL 1.0-4.8 Abs Monocytes 1.0 10^3/uL High 0-0.8 Abs Eosinophils 0.2 10^3/uL 0-0.6 Abs Basophils 0.1 10^3/uL 0-0.2 Abs Nucleated RBC 0.01 10^3/uL Granulocyte % 58.3 % 38-83 Lymphocyte % 30.4 % 25-47 Monocyte % 9.1 % High 1-9 Eosinophil % 1.5 % 0-6 Basophil % 0.7 % 0-2 Nucleated Red Blood Cells % 0.1 Comp Metabolic Panel 10/05/2013 Sodium 137 mmol/L 133-145 Potassium 3.9 mmol/L 3.5-5.0 Chloride 106 mmol/L 101-111 Co2 Carbon Dioxide 24.0 mmol/L 22-32 Anion Gap 7.0 mmol/L 2-11 Glucose 82 mg/dL 70-100 Blood Urea Nitrogen 7 mg/dL 6-24 Creatinine 0.70 mg/dL 0.50-1.40 BUN/Creatinine Ratio 10.0 8-20 Calcium 9.4 mg/dL 8.1-9.9 Total Protein 7.1 g/dL 6.2-8.1 Albumin 3.8 g/dL 3.6-5.4 Globulin 3.3 g/dL 2-4 Albumin/Globulin Ratio 1.2 1-3 Total Bilirubin 0.5 mg/dL 0.4-1.5 Alkaline Phosphatase 59 U/L 50-176 Alt 20 U/L 14-54 Ast 23 U/L 12-42 Laboratory test finding 10/05/2013 Lipase 38 U/L 22-51 C Reactive Protein < 0.5 mg/dL Less than 0.5 Serum Negative Negative 35 CBC With Manual Diff 09/26/2013 White Blood Count 10.8 10^3/uL 4.8-10.8 Red Blood Count 4.92 10^6/uL 4.0-5.4 Hemoglobin 13.4 g/dL 12.0-16.0 Hematocrit 41 % 35-47 Mean Corpuscular Volume 84 fL 80-97 Mean Corpuscular Hemoglobin 27 pg 27-31 Mean Corpuscular HGB Conc 32 g/dL 31-36 Red Cell Distribution Width 13 % 10.5-15 Platelet Count 534 10^3/uL High 150-450 Mean Platelet Volume 8 um3 7.4-10.4 Abs Neutrophils 6.2 10^3/uL 1.5-7.7 Abs Lymphocytes 3.4 10^3/uL 1.0-4.8 Abs Monocytes 0.9 10^3/uL High 0-0.8 Abs Eosinophils 0.3 10^3/uL 0-0.6 Abs Basophils 0 10^3/uL 0-0.2 Abs Nucleated RBC 0 10^3/uL Neutrophil % 57 % 38-83 Lymphocytes % 33 % 25-47 Monocytes % 4 % 0-13 Eosinophils % 1 % 0-6 Basophil % 2 % 0-2 Reactive Lymph % 3 % 0-6 RBC Morphology Normal Normal Comp Metabolic Panel 09/26/2013 Sodium 137 mmol/L 133-145 Potassium 4.3 mmol/L 3.5-5.0 Chloride 105 mmol/L 101-111 Co2 Carbon Dioxide 24.0 mmol/L 22-32 Anion Gap 8.0 mmol/L 2-11 Glucose 80 mg/dL 70-100 Blood Urea Nitrogen 7 mg/dL 6-24 Creatinine 0.60 mg/dL 0.50-1.40 BUN/Creatinine Ratio 11.7 8-20 Calcium 9.9 mg/dL 8.1-9.9 Total Protein 7.2 g/dL 6.2-8.1 Albumin 4.0 g/dL 3.6-5.4 Globulin 3.2 g/dL 2-4 Albumin/Globulin Ratio 1.3 1-3 Total Bilirubin 0.4 mg/dL 0.4-1.5 Alkaline Phosphatase 66 U/L 50-176 Alt 22 U/L 14-54 Ast 20 U/L 12-42 Laboratory test finding 09/26/2013 C Reactive Protein 0.6 mg/dL High Less than 0.5 Erythrocyte Sed Rate 22 mm/Hr High 0-14 Laboratory test finding 08/25/2013 .Hemoglobin in house 11.4 Laboratory test finding 08/09/2013 Amylase 67 U/L 20-120 Lipase 47 U/L 22-51 CBC With Manual Diff 08/09/2013 White Blood Count 10.9 10^3/uL High 4.8- 10.8 Red Blood Count 4.63 10^6/uL 4.0-5.4 Hemoglobin 13.5 g/dL 12.0-16.0 Hematocrit 40 % 35-47 Mean Corpuscular Volume 85 fL 80-97 Mean Corpuscular Hemoglobin 29 pg 27-31 Mean Corpuscular HGB Conc 34 g/dL 31-36 Red Cell Distribution Width 14 % 10.5-15 Platelet Count 482 10^3/uL High 150-450 Mean Platelet Volume 8 um3 7.4-10.4 Abs Neutrophils 6.7 10^3/uL 1.5-7.7 Abs Lymphocytes 3.1 10^3/uL 1.0-4.8 Abs Monocytes 0.8 10^3/uL 0-0.8 Abs Eosinophils 0.1 10^3/uL 0-0.6 Abs Basophils 0 10^3/uL 0-0.2 Abs Nucleated RBC 0.01 10^3/uL Neutrophil % 59 % 38-83 Band % 1 % 0-8 Lymphocytes % 30 % 25-47 Monocytes % 8 % 0-13 Eosinophils % 1 % 0-6 Reactive Lymph % 1 % 0-6 RBC Morphology Normal Normal Comp Metabolic Panel 08/09/2013 Sodium 135 mmol/L 133-145 Potassium 3.9 mmol/L 3.5-5.0 Chloride 103 mmol/L 101-111 Co2 Carbon Dioxide 24.0 mmol/L 22-32 Anion Gap 8.0 mmol/L 2-11 Glucose 102 mg/dL High 70-100 Blood Urea Nitrogen 8 mg/dL 6-24 Creatinine 0.60 mg/dL 0.50-1.40 BUN/Creatinine Ratio 13.3 8-20 Calcium 9.7 mg/dL 8.1-9.9 Total Protein 7.8 g/dL 6.2-8.1 Albumin 3.9 g/dL 3.6-5.4 Globulin 3.9 g/dL 2-4 Albumin/Globulin Ratio 1.0 1-3 Total Bilirubin 0.5 mg/dL 0.4-1.5 Alkaline Phosphatase 57 U/L 50-176 Alt 27 U/L 14-54 Ast 29 U/L 12-42 Laboratory test finding 08/09/2013 C Reactive Protein < 0.5 mg/dL Less than 0.5 Urine Culture And 08/06/2013 Urine Culture (SEE NOTE) 36 Sensitivities Urine Microscopic 08/06/2013 Urine WBC 1+ (<10 None Seen /hpf) Urine RBC 1+ (<3 /hpf) None Seen Urine Mucus Present /lpf Absent Urine Epithelial Cells 1+ Squamous /hpf None Seen Bacteria Urine 2+ None Seen Urinalysis 08/06/2013 Urine Color Yellow Urine Appearance Clear Urine Specific [place] 1.017 1.010-1.030 Urine Esterase Negative Negative Urine Nitrate Positive Negative Urine Urobilinogen Negative E.U./dL Negative Urine Protein Negative mg/dL Negative Urine pH 7.0 5-9 Urine Blood Negative Negative Urine Ketones Negative mg/dL Negative Urine Bilirubin Negative Negative Urine Glucose Negative mg/dL Negative Stool For Blood 08/06/2013 Stool Occult Blood (SEE NOTE) 37 Laboratory test finding 08/06/2013 Affirm Vaginal Dna (SEE NOTE) 38 Probe GC/Chlamydia Amplified 08/06/2013 GC/Chlamydia Rna (SEE NOTE) 39 Rna CBC Auto Diff 08/06/2013 White Blood Count 10.3 10^3/uL 4.8-10.8 Red Blood Count 4.45 10^6/uL 4.0-5.4 Hemoglobin 12.8 g/dL 12.0-16.0 Hematocrit 38 % 35-47 Mean Corpuscular Volume 85 fL 80-97 Mean Corpuscular Hemoglobin 29 pg 27-31 Mean Corpuscular HGB Conc 34 g/dL 31-36 Red Cell Distribution Width 13 % 10.5-15 Platelet Count 449 10^3/uL 150-450 Mean Platelet Volume 8 um3 7.4-10.4 Abs Neutrophils 6.6 10^3/uL 1.5-7.7 Abs Lymphocytes 2.6 10^3/uL 1.0-4.8 Abs Monocytes 0.9 10^3/uL High 0-0.8 Abs Eosinophils 0.1 10^3/uL 0-0.6 Abs Basophils 0 10^3/uL 0-0.2 Abs Nucleated RBC 0 10^3/uL Granulocyte % 64.4 % 38-83 Lymphocyte % 25.1 % 25-47 Monocyte % 8.8 % 1-9 Eosinophil % 1.4 % 0-6 Basophil % 0.3 % 0-2 Nucleated Red Blood Cells % 0 Laboratory test finding 08/06/2013 Lipase 81 U/L High 22-51 C Reactive Protein < 0.5 mg/dL Less than 0.5 Comp Metabolic Panel 08/06/2013 Sodium 138 mmol/L 133-145 Potassium 3.9 mmol/L 3.5-5.0 Chloride 108 mmol/L 101-111 Co2 Carbon Dioxide 24.0 mmol/L 22-32 Anion Gap 6.0 mmol/L 2-11 Glucose 96 mg/dL 70-100 Blood Urea Nitrogen 8 mg/dL 6-24 Creatinine 0.50 mg/dL 0.50-1.40 BUN/Creatinine Ratio 16.0 8-20 Calcium 9.3 mg/dL 8.1-9.9 Total Protein 7.6 g/dL 6.2-8.1 Albumin 3.9 g/dL 3.6-5.4 Globulin 3.7 g/dL 2-4 Albumin/Globulin Ratio 1.1 1-3 Total Bilirubin 0.3 mg/dL Low 0.4-1.5 Alkaline Phosphatase 54 U/L 50-176 Alt 24 U/L 14-54 Ast 24 U/L 12-42 Laboratory test finding 08/06/2013 Serum Negative Negative 40 CBC Auto Diff 08/13/2012 White Blood Count 9.1 CUMM 4.8-10.8 Red Cell Count 4.47 CUMM 4.2-5.4 Hemoglobin 12.6 g/dL 12.0-16.0 Hematocrit 38 % 35-47 Mean Corpuscular Volume 86 um3 79-97 Mean Corpuscular Hemoglob 28 pg 27-31 Mean Corpuscular HGB Cone 33 g/dL 32-36 Redcell Distribution WDTH 14 % 10.5-15 Platelet Count 394 CUMM 150-450 Mean Platelet Volume 9.0 um3 7.4-10.4 Gran % 49.1 % 38-83 Lymph % 37.4 % 20-45 Mononuclear % 11.2 % High 1-9 Eosinophil % 1.7 % 0-6 Basophil % 0.6 % 0-2 Abs Lymphs 3.4 1.0-4.8 Abs Mononuclear 1.0 High 0-0.8 Absolute Neutrophil Count 4.5 1.5-7.7 Abs Eosinophils 0.2 0-0.6 Abs Basophils 0.1 0-0.2 Comp Metabolic Panel 08/13/2012 Sodium 139 mmol/L 135-145 Potassium 4.1 mmol/L 3.6-5.2 Chloride 108 mmol/L 101-111 Co2 (Carbon Dioxide) 24.0 mmol/L 22-32 Anion Gap 7.0 mmol/L 2-11 41 Glucose 91 mg/dL 70-100 BUN 8 mg/dL 6-24 Creatinine 0.8 mg/dL 0.50-1.40 One Over Creatinine 1.25 BUN/Creatinine Ratio 10.0 8-20 Calcium 9.4 mg/dL 8.1-9.9 Total Protein 7.0 GM/DL 6.2-8.1 Albumin 3.8 GM/DL 3.6-5.4 Globulin 3.2 GM/DL 2-4 Albumin/Globulin Ratio 1.2 1-3 Bilirubin Total 0.5 mg/dL 0.4-1.5 42 Alkaline Phosphatase 55 U/L Low 130-390 Alt (SGPT) 32 U/L 14-54 Ast (Sgot) 26 U/L 12-42 Laboratory test finding 08/13/2012 Hemoglobin A1c 5.2 % Less Than 6.0 43 Insulin 20.6 mcIU/mL 2.6 - 24.9 44 Thyroid Panel 08/13/2012 Free Thyroxine 0.93 ng/dL 0.61-1.24 Thyroxine 10.9 g/dL 5-12 TSH 2.83 MIU/ML 0.34-5.60 Lipid Profile (Trig/Chol/HDL) 08/13/2012 Triglyceride 91 mg/dL 40-200 Cholesterol 100 mg/dL 100-175 High Density Lipoprotein 22 mg/dL Low 40-60 45 Cholesterol/HDL Ratio 4.55 AVERAGE High 1-4.44 Low Density Lipoprotein 60 mg/dL Less Than 100 46 Laboratory test finding 08/04/2011 Hemoglobin 12.4 CBC With Manual Diff 08/27/2010 White Blood Count 8.1 CUMM 4.8-10.8 Red Cell Count 4.76 CUMM 4.0-5.2 Hemoglobin 13.6 g/dL 11.5-15.5 Hematocrit 40 % 35-45 Mean Corpuscular Volume 85 um3 79-97 Mean Corpuscular Hemoglob 29 pg 27-31 Mean Corpuscular HGB Cone 34 g/dL 32-36 Redcell Distribution WDTH 13 % 10.5-15 Platelet Count 456 CUMM High 150-450 Mean Platelet Volume 7.4 um3 7.4-10.4 Polysegmented Neutrophil 58 % 38-83 Lymphocyte 36 % 25-47 Monocyte 6 % 0-13 Absolute Neutrophil Count 4.6 RBC Morphology NORMAL Comp Metabolic Panel 08/27/2010 Sodium 138 mmol/L 135-145 Potassium 4.3 mmol/L 3.6-5.2 Chloride 103 mmol/L 101-111 Co2 (Carbon Dioxide) 27.0 mmol/L 22-32 Anion Gap 8.0 mmol/L 2-11 47 Glucose 77 mg/dL 70-100 48 BUN 8 mg/dL 6-24 Creatinine 0.50 mg/dL 0.50-1.40 One Over Creatinine 2.00 BUN/Creatinine Ratio 16.0 8-20 Calcium 9.7 mg/dL 8.1-9.9 Total Protein 7.8 GM/DL 6.2-8.1 Albumin 4.2 GM/DL 3.6-5.4 Globulin 3.6 GM/DL 2-4 Albumin/Globulin Ratio 1.2 1-3 Bilirubin Total 0.3 mg/dL Low 0.4-1.5 49 Alkaline Phosphatase 97 U/L Low 130-390 Alt (SGPT) 27 U/L 14-54 Ast (Sgot) 25 U/L 12-42 Laboratory test finding 08/27/2010 FSH 7.88 MIU/ML 50 Laboratory test finding 08/27/2010 Insulin 34 uU/mL 2.6-25 51 Dhea 3.2 ng/mL <5.0 52 Lipid Profile (Trig/Chol/HDL) 08/27/2010 Triglyceride 67 mg/dL 40-200 Cholesterol 113 mg/dL 100-175 High Density Lipoprotein 28 mg/dL Low 40-60 53 Cholesterol/HDL Ratio 4.04 AVERAGE 1-4.44 Low Density Lipoprotein 72 mg/dL Less Than 100 54 Laboratory test finding 08/27/2010 Lutenizing Hormone 12.97 MIU/ML 55 Prolactin 7.54 NG/ML 56 Thyroid Panel 08/27/2010 Free Thyroxine 0.67 NG/ML 0.61-1.24 Thyroxine 7.9 g/dL 5-12 TSH 1.91 MIU/ML 0.34-5.60 Laboratory test finding 07/08/2009 Hemoglobin 12.4 CBC With Manual Diff 07/24/2008 White Blood Count 10.0 CUMM 5.0-17.0 Red Cell Count 4.57 CUMM 3.9-5.3 Hemoglobin 13.3 g/dL 11.5-14.0 Hematocrit 38 % 34-40 Mean Corpuscular Volume 83 um3 76-87 Mean Corpuscular Hemoglob 29 pg 24-30 Mean Corpuscular HGB Cone 35 g/dL 30-36 Redcell Distribution WDTH 13 % 10.5-15 Platelet Count 552 CUMM High 150-450 Mean Platelet Volume 6.9 um3 Low 7.4-10.4 Polysegmented Neutrophil 56 % 38-83 Lymphocyte 35 % 5-47 Monocyte 5 % 0-13 Eosenophil 4 % 0-6 Absolute Neutrophil Count 5.6 RBC Morphology NORMAL Platelet Evaluation INCREASED Comp Metabolic Panel 07/24/2008 Sodium 136 mmol/L 135-145 Potassium 4.7 mmol/L 3.6-5.2 Chloride 103 mmol/L 101-111 Co2 (Carbon Dioxide) 28.0 mmol/L 22-32 Anion Gap 5.0 mmol/L 2-11 57 Glucose 87 mg/dL 70-100 58 BUN 10 mg/dL 6-24 Creatinine 0.7 mg/dL 0.5-1.4 One Over Creatinine 1.42 BUN/Creatinine Ratio 14.3 8-20 Calcium 10.1 mg/dL High 8.1-9.9 59 Total Protein 7.6 GM/DL 6.2-8.1 Albumin 4.2 GM/DL 3.6-5.4 Globulin 3.4 GM/DL 2-4 Albumin/Globulin Ratio 1.2 1-3 Bilirubin Total 0.7 mg/dL 0.4-1.5 Alkaline Phosphatase 157 U/L 130-390 Alt (SGPT) 22 U/L 14-54 Ast (Sgot) 27 U/L 12-42 Lipid Profile (Trig/Chol/HDL) 07/24/2008 Triglyceride 116 mg/dL 40-200 Cholesterol 128 mg/dL 100-175 High Density Lipoprotein 31 mg/dL Low 40-60 60 Cholesterol/HDL Ratio 4.13 AVERAGE 1-4.44 Low Density Lipoprotein 74 mg/dL Less Than 100 61 Laboratory test finding 07/24/2008 Thyroxine 6.2 g/dL 5-12 TSH 1.69 MIU/ML 0.34-5.60 Cortisol 5.6 g/dL 62 Insulin 27 uU/mL 2.6-25 63 Laboratory test finding 02/08/2008 Throat Culture Quick Strep negative Throat Culture (Overnight) NEG PER SHRIV 1 Nasopharyngeal swab 2 REFERENCE VALUE Not Applicable 3 REFERENCE VALUE Not Applicable ADDITIONAL INFORMATION This test was developed and its performance characteristics determined by [facility] in a manner consistent with CLIA requirements. This test has not been cleared or approved by the U.S. Food and Drug Administration. Test Performed by: [facility] [place] [address] 4 The urine specimen was tested at the listed cutoffs: Drug class test level (ng/mL) Amphetamines 500 Barbiturates 200 Benzodiazepine metabolites 200 Cocaine metabolites 150 Cannabinoids 50 Opiates 300 Pcp 25 Specimen was received without chain of custody. Results should be used for medical purposes only. 5 Critical Result LACT:2.1 Called to ABIOLA at: 21:35:58 by:HALIMA Read back by:ABIOLA [facility] Severe Sepsis and Septic Shock Management Bundle Measure requires all lactic acids initially measuring >2.0 mmol/L be repeated. 6 Because ethnic data is not always readily available, this report includes an eGFR for both -Americans and non- Americans. The National Kidney Disease Education Program (NKDEP) does not endorse the use of the MDRD equation for patients that are not between the ages of 18 and 70, are , have extremes of body size, muscle mass, or nutritional status, or are non- or non-. According to the National Kidney Foundation, irrespective of diagnosis, the stage of the disease is based on the level of kidney function: Stage Description GFR(mL/min/1.73 m(2)) 1 Kidney damage with normal or decreased GFR 90 2 Kidney damage with mild decrease in GFR 60-89 3 Moderate decrease in GFR 30-59 4 Severe decrease in GFR 15-29 5 Kidney failure <15 (or dialysis) 7 Therapeutic concentration: <50 ug/mL Toxic concentration: >120 ug/mL 8 <5.0 Negative 5.0 - 25.0 Indeterminate (Repeat testing recommended after 72 hours) >25.0 Positive Perimenopausal women can display HCG levels of up to 20 mIU/mL 9 SEE RESULT BELOW Name: RAJIJAN M : [address]: Cynthia Ledezma MD Acct: [id number] Unit: [id number] AGE: 22 Location: [facility] Re07/14/17 Dis: 07/14/17 SEX: F Status: DIS IN SPEC: [id number] EDUARDO: 07/13/17-2319 [facility] DR: Alon Soriano MD REQ: [id number] RECD: 07/13/17 STATUS: [place] DR: Saadia Mike DO _ SOURCE: URINE [facility]: ORDERED: Urine Culture Procedure Result Reported Site Urine Culture Final 07/15/17- 1020 ML No growth of clinically significant organisms * ML - MAIN LAB ([facility]) . END OF REPORT * ML=Testing performed at Main Lab DEPARTMENT OF PATHOLOGY, [address] [place] [address] Vishnu Velazco M.D. Director [facility] # [id number] 10 If is still suspected, please repeat test after 48 to 72 hours. This test detects intact HCG only and is indicated for the early detection of . 11 SEE RESULT BELOW Name: JAN CONTRERAS : [address]: Cait Krishna DO Acct: [id number] Unit: [id number] AGE: 20 Location: [facility] Re04/01/16 SEX: F Status: REG ER SPEC: [id number] EDUARDO: 04/01/16 [facility] DR: Cait Krishna DO REQ: [id number] RECD: 04/01/16 STATUS: [place] DR: Saadia Mike DO _ SOURCE: THROAT SPDESC: ORDERED: Strep A Request Procedure Result Reported Site Rapid Strep A Request Final 04/01/16- 1921 ML Specimen received for Rapid Strep A Molecular testing * ML - MAIN LAB ([facility]) . END OF REPORT * ML=Testing performed at Main Lab DEPARTMENT OF PATHOLOGY, [address] [place] [address] Vishnu Velazco M.D. Director [facility] # [id number] 12 Customer Quality Engineer: HALIMA WILLINGHAM Due to the increased sensitivity of molecular testing, reflex cultures are no longer performed. 13 Test Performed by: [place] [id number] Product Marketing Analyst: Deejay Whitmore II, M.D., Ph.D. 14 Because ethnic data is not always readily available, this report includes an eGFR for both -Americans and non- Americans. The National Kidney Disease Education Program (NKDEP) does not endorse the use of the MDRD equation for patients that are not between the ages of 18 and 70, are , have extremes of body size, muscle mass, or nutritional status, or are non- or non-. According to the [employer], irrespective of diagnosis, the stage of the disease is based on the level of kidney function: Stage Description GFR(mL/min/1.73 m(2)) 1 Kidney damage with normal or decreased GFR 90 2 Kidney damage with mild decrease in GFR 60-89 3 Moderate decrease in GFR 30-59 4 Severe decrease in GFR 15-29 5 Kidney failure <15 (or dialysis) 15 Test Performed by: [address] [address] Product Marketing Analyst: Deejay Whitmore II, M.D., Ph.D. 16 Desirable <150 Borderline high 150-199 High 200-499 Very High >500 17 Desirable <200 Borderline high 200-239 High >239 18 Low <40 Desirable: 40-60 High: >60 19 Desirable: <100 mg/dL Near Optimal: 100-129 mg/dL Borderline High: 130-159 mg/dL High: 160-189 mg/dL Very High: >189 mg/dL 20 RUN DATE: 01/16/15 [facility] LAB LIVE PAGE 1 RUN TIME: [address] [place] [address] Specimen Inquiry Name: ANSHU CONTRERASGIANA Moraes : [address]: Alessandro Dolan MD Acct: [id number] Unit: [id number] AGE: 19 Location: [facility] Re01/16/15 SEX: F Status: REG ER SPEC: [id number] EDUARDO: 01/16/15 [facility] DR: Alessandro Dolan MD REQ: [id number] RECD: 01/16/15 STATUS: [place] DR: Saadia Mike DO _ SOURCE: [facility]: ORDERED: Rapid Flu A B Procedure Result Verified Site Rapid Influenza A B Antigen Final 01/16/15- 1936 ML Organism 1 Negative Influenza A B Antigen testing by enzyme immunoassay. Cell culture testing can be performed to confirm negative test results and to assist in detecting other viruses that can produce similar clinical symptoms. Please notify Microbiology Lab if further testing is desired. END OF REPORT * ML=Testing performed at Main Lab DEPARTMENT OF PATHOLOGY, [address] [place] [address] Vishnu Velazco M.D. Director [facility] # [id number] 21 The urine specimen was tested at the listed cutoffs: Drug class test level (ng/mL) Amphetamines 500 Barbituates 200 Benzodiazepine metabolites 200 Cocaine metabolites 150 Cannabinoids 50 Opiates 300 Pcp 25 This is a screening procedure. Positive results are not confirmed. Specimen was received without chain of custody. Results should be used for medical purposes only. 22 ~~Tube 2 ~~Tube 3 ~~Tube 3 Tube 4 ~~Tube 3 ~~Tube 3 ~~Tube 3 ~~Tube 3 ~~ Tube 3 ~~Tube 3 ~~Tube 3 ~~Tube 3 23 Tube 2 24 Tube 2 25 RUN DATE: 12/02/14 [facility] LAB LIVE PAGE 1 RUN TIME: [address] [place] [address] Specimen Inquiry Name: JAN CONTRERAS Dimitry : [address]: Primitivo Gallagher MD Acct: [id number] Unit: [id number] AGE: 19 Location: ED Re11/27/14 SEX: F Status: DEP ER SPEC: [id number] EDUARDO: 11/28/14 [facility] DR: Primitivo Gallagher MD REQ: [id number] RECD: 11/28/14 STATUS: [place] DR: Saadia Mike DO _ SOURCE: CSF SPDESC: ORDERED: CSF Cult/GS COMMENTS: Tube 3 Procedure Result Verified Site CSF Gram Stain Final 11/28/14- 0933 ML 1+ Nucleated Cells 1+ Epithelial Cells No Organisms Seen Preparation By Cytospin Smear CSF Culture Final 12/02/14- 1133 ML No Growth Day 4 END OF REPORT * ML=Testing performed at Main Lab DEPARTMENT OF PATHOLOGY, [facility] [employer] [place] [id number] Vishnu Velazco M.D. Director [facility] # [id number] 26 Slide and differential reviewed. No bacteria, blasts or other malignant cells seen. No evidence of an acute inflammatory response. Reviewed by Noemi Lay MD 27 RUN DATE: 12/02/14 [facility] LAB LIVE PAGE 1 RUN TIME: [address] [place] [address] Specimen Inquiry Name: JAN CONTRERAS : [address]: Primitivo Gallagher MD Acct: [id number] Unit: [id number] AGE: 19 Location: ED Re11/27/14 SEX: F Status: DEP ER SPEC: [id number] EDUARDO: 11/27/14 [facility] DR: Primitivo Gallagher MD REQ: [id number] RECD: 11/27/14 STATUS: COMP [facility] DR: Saadia Mike DO _ SOURCE: BLOOD,[facility]: ORDERED: Blood Cult Procedure Result Verified Site Aerobic Culture Bottle Final 12/02/14- 2357 ML No Growth Day 5 Anaerobic Culture Bottle Final 12/02/142357 ML No Growth Day 5 END OF REPORT * ML=Testing performed at Main Lab DEPARTMENT OF PATHOLOGY, [address] [place] [address] Vishnu Velazco M.D. Director [facility] # [id number] 28 This test detects intact HCG only and is indicated for the early detection of . 29 RUN DATE: 11/27/14 [facility] LAB LIVE PAGE 1 RUN TIME: 2132 [address] [place], [place] [address] Specimen Inquiry Name: JAN CONTRERAS Dimitry : [address]: Alessandro Dolan MD Acct: [id number] Unit: [id number] AGE: 19 Location: [facility] Re11/27/14 SEX: F Status: REG ER SPEC: [id number] EDUARDO: 11/27/14-[address]: Alessandro Dolan MD REQ: [id number] RECD: 11/27/14 STATUS: [place] DR: Saadia Mike DO _ SOURCE: [facility]: ORDERED: Rapid Flu A B Procedure Result Verified Site Rapid Influenza A B Antigen Final 11/27/14- 2133 ML Organism 1 Negative Influenza A B Antigen testing by enzyme immunoassay. Cell culture testing can be performed to confirm negative test results and to assist in detecting other viruses that can produce similar clinical symptoms. Please notify Microbiology Lab if further testing is desired. END OF REPORT * ML=Testing performed at Main Lab DEPARTMENT OF PATHOLOGY, [address] [place] [address] Vishnu Velazco M.D. Director [facility] # [id number] 30 Acute inflammation: >10.00 31 *Ascorbic acid is present which may interfere with detection of blood. 32 Test Performed by: [place] [address] Product Marketing Analyst: Antonio Nichols M.D. 33 Therapeutic target for the treatment of diabetes Mellitus patients is <7% HBA1C, and in selective patients <6.0%.Please refer to [place] [employer] Diabetic care guidelines for further information. 34 Test Performed by: [address] [address] Product Marketing Analyst: Antonio Nichols M.D. 35 This test detects intact HCG only and is indicated for the early detection of . 36 RUN DATE: 08/08/13 [facility] LAB LIVE PAGE 1 RUN TIME: [address] [place] [address] Specimen Inquiry Name: JAN CONTRERAS : [address]: Louie Malik DO Acct: [id number] Unit: [id number] AGE: 18 Location: ED Re08/06/13 SEX: F Status: DEP ER SPEC: [id number] EDUARDO: 08/06/[address]: Laurie MAX REQ: [id number] RECD: 08/06/13 STATUS: [place] DR: Saadia Rosado DO _ SOURCE: URINE SPDESC: ORDERED: Urine Culture Procedure Result Verified Site Urine Culture Final 08/08/13- 0851 ML Organism 1 ESCHERICHIA COLI [place] Count >100,000 (Many) CFU/ML 1. ESCHERICHIA COLI M.I.C. RX --------- ------ Ampicillin 4 S Cefazolin <=4 S Cefepime <=1 S Ceftriaxone <=1 S Ciprofloxacin <=0.25 S Gentamicin <=1 S Imipenem <=0.25 S Levofloxacin <=0.12 S Meropenem <=0.25 S Nitrofurantoin <=16 S Tetracycline <=1 S Pipercillin/Tazobactam <=4 S Trimethoprim/Sulfamethoxazole <=20 S Amoxicillin/Clavulanic Acid 4 S Aztreonam <=1 S Contact the Microbiology Department for any additional antibiotic reporting. END OF REPORT * ML=Testing performed at Main Lab DEPARTMENT OF PATHOLOGY, [facility] [employer] [place] [address] Vishnu Velazco M.D. Director [facility] Permit #[id number] 37 RUN DATE: 08/06/13 [facility] LAB LIVE PAGE 1 RUN TIME: 5245 [facility] [employer] [place], [place] [address] Specimen Inquiry Name: JAN CONTRERAS : [address]: Louie Malik DO Acct: [id number] Unit: [id number] AGE: 18 Location: ED Re08/06/13 SEX: F Status: REG ER SPEC: [id number] EDUARDO: 08/06/13-[address]: Laurie MAX REQ: [id number] RECD: 08/06/13-1320 STATUS: COMP OTHR DR: Saadia Rosado DO _ SOURCE: STOOL SPDESC: ORDERED: Hemoccult Procedure Result Verified Site Stool Occult Blood Final 08/06/13- 1325 ML Stool Occult Blood Positive END OF REPORT * ML=Testing performed at Main Lab DEPARTMENT OF PATHOLOGY, [facility] [employer] [place], [place] [address] Vishnu Velazco M.D. Director [facility] Permit #[id number] 38 RUN DATE: 08/07/13 [facility] LAB LIVE PAGE 1 RUN TIME: 1347 [facility] [employer] [place], [place] [address] Specimen Inquiry Name: JAN CONTRERAS : [address]: Louie Malik DO Acct: [id number] Unit: [id number] AGE: 18 Location: ED Re08/06/13 SEX: F Status: DEP ER SPEC: [id number] EDUARDO: 08/06/13-1315 [facility] DR: Laurie MAX REQ: [id number] RECD: 08/06/13 STATUS: [place] DR: Saadia Rosado DO _ SOURCE: VAGINAL SPDESC: ORDERED: Affirm Procedure Result Verified Site Affirm Vaginal DNA Probe Final 08/07/13- 1346 ML Organism 1 Negative Trichomonas Organism 2 Negative Gardnerella Organism 3 Negative Ana The presence of G. vaginalis, although suggestive, is not diagnostic for bacterial vaginosis. Results should be interpreted in conjunction with other clinical and laboratory data available. Women with vaginal discharge should be evaluated for risk factors of cervicitis and pelvic inflammatory disease, toxic shock syndrome (S.aureus), and if present, evaluated for organisms not included in this assay such as N. gonorrhoeae, C. trachomatis, Mobiluncus, Mycoplasma and/or Prevotella. Mixed infections may occur. The performance of this test on patient specimens collected during or immediately after antimicrobial therapy is unknown. The presence or absence of Ana species, G. vaginalis or T. vaginalis cannot be used as a test for therapeutic success or failure. END OF REPORT * ML=Testing performed at Main Lab DEPARTMENT OF PATHOLOGY, [facility] [employer] [place], [place] [address] Vishnu Velazco M.D. Director [facility] Permit #[id number] 39 RUN DATE: 08/08/13 [facility] LAB LIVE PAGE 1 RUN TIME: [address] [place] [address] Specimen Inquiry Name: JAN CONTRERAS Dimitry : [address]: Louie Malik DO Acct: [id number] Unit: [id number] AGE: 18 Location: ED Re08/06/13 SEX: F Status: DEP ER SPEC: [id number] EDUARDO: 08/06/13-[address]: Laurie MAX REQ: [id number] RECD: 08/06/13 STATUS: [place] DR: Saadia Rosado DO _ SOURCE: ENDOCERVIX SPDESC: ORDERED: CARLENE/Priscillaam RNA Procedure Result Verified Site Chlamydia Trachomatis RNA Final 08/08/13- 1556 ML NEGATIVE for Chlamydia trachomatis rRNA GC (N. gonorrhoeae) RNA Final 08/08/13- 1545 ML NEGATIVE for Neisseria gonorrhoeae rRNA A negative result does not preclude the presence of a C. trachomatis or N. gonorrhoeae infection because results are dependent on adequate specimen collection, absence of inhibitors, and sufficient rRNA to be detected. Test results may be affected by improper specimen collection, improper storage, technical error, or specimen mixup. Limitations of the Procedure: The Aptima Combo 2 Assay is not intended for the evaluation of suspected sexual abuse or for other medico-legal indications. For those patients for whom a false positive result may have adverse psychosocial impact, the [facility] recommends retesting by a method using an alternate technology. Therapeutic failure or success cannot be determined with the Aptima Combo 2 Assay since nucleic acid may persist following appropriate antimicrobial therapy. Results from the Aptima Combo 2 Assay should be interpreted in conjunction with other laboratory and clinical data available to the clinican. CONTINUED ON NEXT PAGE * ML=Testing performed at Main Lab DEPARTMENT OF PATHOLOGY, [facility] [employer] [place], [place] [address] Vishnu Velazco M.D. Director [facility] Permit #[id number] RUN DATE: 08/08/13 [facility] LAB LIVE PAGE 2 RUN TIME: 1556 [facility] [employer] [place], [place] [address] Specimen Inquiry Patient: JAN CONTRERAS [id number] (Continued) Specimen: [id number] Collected: 08/06/13 Received: 08/06/13 (Continued) Procedure Result Verified Site GC (N. gonorrhoeae) RNA Final (continued) 08/08/13- 7048 Performance characteristics for detecting C. trachomatis and N. gonorrhoeae are derived from high prevalence populations. Positive results in low prevalence populations should be interpreted carefully with the understanding that the likelihood of a false positive may be higher than a true positive. END OF REPORT * ML=Testing performed at Main Lab DEPARTMENT OF PATHOLOGY, [address] [place] [address] Vishnu Velazco M.D. Director [facility] Permit #[id number] 40 This test detects intact HCG only and is indicated for the early detection of . 41 Anion gap measurement may be of limited value in the presence of any alkalosis, especially in a combined acid base disorder. . 42 A metabolite of Naproxen, O-desmethylnaproxen, has been shown to interfere with the Jendrassik-Nima method for measuring total bilirubin. Samples from patients who have taken Naproxen have shown spurious elevation in total bilirubin levels. 43 THERAPEUTIC TARGET FOR THE TREATMENT OF DIABETES MELLITUS PATIENTS IS <7% HBA1C, AND IN SELECTIVE PATIENTS <6.0%. PLEASE REFER TO [place] [employer] DIABETIC CARE GUIDELINES FOR FURTHER INFORMATION. 44 Test Performed by: [place] [address] Product Marketing Analyst: Devang Garcia III, M.D. 45 HDL INTERPRETATION: Undesirable: High Risk: Less than 40 MG/DL Desirable: Low Risk: Greater than 60 MG/DL 46 LDL INTERPRETATION: Low Risk Optimal Level: LDL Less than 100 MG/DL Near or Above Optimal: LDL 100-129 MG/DL Borderline High Risk: LDL 130-159 MG/DL High Risk: LDL 160-189 MG/DL Very High Risk: LDL Greater than 189 MG/DL 47 Anion gap measurement may be of limited value in the presence of any alkalosis, especially in a combined acid base disorder. . 48 Note change in reference range as of 07/12/08. The change was based on recommendations from the [place] [employer]. 49 A metabolite of Naproxen, O-desmethylnaproxen, has been shown to interfere with the Jendrassik-[place] method for measuring total bilirubin. Samples from patients who have taken Naproxen have shown spurious elevation in total bilirubin levels. 50 REFERENCE RANGE ADULT MALES 1 - 20 NORMALLY MENSTRUATING FEMALES - Follicular Phase 3 - 9 - Mid-Cycle Peak 4 - 23 - Luteal Phase 1 - 6 POSTMENOPAUSAL FEMALES 16 - 114 NOTE: PEDIATRIC REFERENCE RANGES HAVE NOT BEEN ESTABLISHED FOR THIS ASSAY. PLEASE REFER TO AN EXTERNAL SOURCE FOR AN ACCURATE REFERENCE RANGE. . 51 Test Performed by: [facility] Dpt of Lab Med and Pathology [address] [place] [address] Product Marketing Analyst: Devang Garcia III, M.D. 52 Test Performed by: [facility] Med [facility] Pathology [address] [place] [address] Product Marketing Analyst: Devang Garcia III, M.D. 53 HDL INTERPRETATION: Undesirable: High Risk: Less than 40 MG/DL Desirable: Low Risk: Greater than 60 MG/DL 54 LDL INTERPRETATION: Low Risk Optimal Level: LDL Less than 100 MG/DL Near or Above Optimal: LDL 100-129 MG/DL Borderline High Risk: LDL 130-159 MG/DL High Risk: LDL 160-189 MG/DL Very High Risk: LDL Greater than 189 MG/DL 55 REFERENCE RANGE ADULT MALES 2 - 12 NORMALLY MENSTRUATING FEMALES - Follicular Phase 1 - 18 - Mid-Cycle Peak 24 - 105 - Luteal Phase 0.6 - 20 POSTMENOPAUSAL FEMALES 15 - 62 NOTE: PEDIATRIC REFERENCE RANGES HAVE NOT BEEN ESTABLISHED FOR THIS ASSAY. PLEASE REFER TO AN EXTERNAL SOURCE FOR AN ACCURATE REFERENCE RANGE. . 56 REFERENCE RANGE ADULT MALES 1.0-20.0 NG/ML ADULT FEMALES 1.0-25.0 NG/ML NOTE: PEDIATRIC REFERENCE RANGES HAVE NOT BEEN ESTABLISHED FOR THIS ASSAY. PLEASE REFER TO AN EXTERNAL SOURCE FOR AN ACCURATE REFERENCE RANGE. . 57 Anion gap measurement may be of limited value in the presence of any alkalosis, especially in a combined acid base disorder. . 58 Note change in reference range as of 07/12/08. The change was based on recommendations from the [place] [employer]. 59 Please note change in reference range effective 08 . 60 HDL INTERPRETATION: Undesirable: High Risk: Less than 40 MG/DL Desirable: Low Risk: Greater than 60 MG/DL 61 LDL INTERPRETATION: Low Risk Optimal Level: LDL Less than 100 MG/DL Near or Above Optimal: LDL 100-129 MG/DL Borderline High Risk: LDL 130-159 MG/DL High Risk: LDL 160-189 MG/DL Very High Risk: LDL Greater than 189 MG/DL 62 REFERENCE RANGE: AM 8.7-22.4 PM LESS THAN 10 . 63 Test Performed by: [facility] D[facility] of Lab Med and Pathology [address] [place] [address] Product Marketing Analyst: Devang Garcia III, M.D. Procedures Description No Information Encounters Type Date Location Provider CPT E/M Dx Office Visit 12/08/2017 5:00p Main Office Saadia Mike D.O. 05274 J22 J45.20 Office Visit 09/22/2016 11:00a East Office Saadia Mike D.O. 85679 F32.9 F41.1 F90.0 J45.20 Z68.43 J30.9 K04.7 Office Visit 03/11/2016 11:15a East Office Bj Dolan M.D. 52198 A08.39 Office Visit 11/29/2015 2:15p East Office Saadia Mike D.O. 04715 Z00.8 F41.1 F32.9 F51.09 F90.0 N92.6 J45.20 Z68.43 Office Visit 07/18/2015 4:00p East Office Saadia Mike D.O. 35785 300.02 311 789.07 307.41 463 Office Visit 05/08/2015 12:00p East Office Saadia Mike D.O. 22889 300.02 789.07 307.41 709.9 Office Visit 12/26/2014 12:30p East Office Saadia Mike D.O. 02040 487.1 Office Visit 11/30/2014 11:30a East Office Saadia Mike D.O. 45162 784.0 079.99 Office Visit 09/14/2014 12:00p Main Office Saadia Mike D.O. 24313 724.5 Office Visit 08/27/2014 3:30p Main Office Saadia Mike D.O. 02450 V20.2 300.02 311 789.07 307.41 493.90 Office Visit 05/11/2014 9:00a East Office Saadia Mike D.O. 89136 300.02 311 789.07 307.41 Office Visit 03/08/2014 3:00p East Office Saadia Mike D.O. 13997 300.02 311 789.07 307.41 Office Visit 01/09/2014 8:30a East Office Saadia Mike D.O. 66101 300.02 311 307.41 493.90 477.9 578.1 789.07 Office Visit 12/14/2013 10:00a East Office Vazquez Vega III, M.D. 06371IN 789.07 578.1 Office Visit 12/01/2013 9:45a East Office Saadia Mike D.O. 01752 300.02 311 781.0 789.07 307.41 578.1 Office Visit 11/09/2013 1:00p Main Office Saadia Mike D.O. 07153 300.02 311 781.0 789.07 493.90 307.41 998.30 Office Visit 10/11/2013 12:30p Main Office Saadia MilianLeelee oliveira 65220 998.59 787.02 789.07 110.9 493.90 309.0 578.1 Office Visit 09/26/2013 12:15p Main Office Saadia Leelee Mike 39928 998.59 787.02 787.03 Office Visit 08/25/2013 8:30a East Office Saadia Leelee Mike 14015 V20.2 789.07 751.0 314.01 626.4 307.41 493.90 V85.54 300.09 Office Visit 08/09/2013 11:00a Main Office Vazquez Vega III, M.D. 37261HC 789.07 Office Visit 02/13/2013 11:45a East Office Saadia Leelee Mike 75346 787.03 789.07 314.01 626.4 307.41 Office Visit 02/03/2013 12:30p Main Office Saadia Leelee Mike 38692 466.0 462 787.03 789.07 Office Visit 08/10/2012 3:00p East Office Saadia Nimo Mike. 79876 V20.2 314.01 626.4 307.41 278.01 493.90 401.9 Office Visit 03/08/2012 8:00a East Office Saadia Leelee Mike 28940 314.01 626.4 307.41 278.01 Office Visit 12/08/2011 8:00a East Office Saadia Leelee Mike 94672 493.90 626.4 Office Visit 10/05/2011 8:00a East Office Saadia Leelee Mike 08272 626.4 Office Visit 08/04/2011 8:45a East Office Saadia Nimo Mike. 52009 V20.2 314.01 626.4 278.01 110.5 307.41 Office Visit 07/29/2010 11:30a East Office Saadiaruben Mike D.O. 09401 V20.2 314.01 278.01 110.5 Office Visit 07/08/2009 9:30a Main Office Saadia Mike D.O. 80579 V20.2 314.01 Office Visit 01/09/2009 8:30a East Office Saadia Mike D.O. 65506 314.01 Office Visit 04/06/2008 8:00a East Office Saadia Mike D.O. 84424 314.01 278.00 Office Visit 02/08/2008 5:15p East Office Saadia Mike D.O. 60115 462 Office Visit 08/04/2007 11:30a East Office Saadia Mike D.O. 57084 V20.2 314.01 Office Visit 03/05/2006 10:15a Main Office Saadia Mike D.O. 57872 314.01 Office Visit 10/20/2005 10:30a Main Office Bj Dolan M.D. 59134 079.99 Office Visit 07/02/2005 11:30a Main Office Saadia Mike D.O. 11962 314.01 Office Visit 03/02/2005 3:00p East Office Saadia Mike D.O. 33717 314.01 Office Visit 01/29/2005 3:15p Main Office Saadia Mike D.O. 92152 314.00 Office Visit 12/02/2004 11:15a Main Office Saadia Mike D.O. 65223 V20.2 Plan of Care 12/08/2017 - Saadia Mike D.O.J22 Unspecified acute lower respiratory infectionNew Medication:Azithromycin 250 mgFollow up:as fzxqcjZ53.20 Mild intermittent asthma, uncomplicatedNew Medication:Ventolin HFA 108(90 Base) mcg/ Act
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
[2018-01-06] MEDS: Acetaminophen TAB* 325 MG PO ONE (15:07)
[2018-01-06 15:24] LABS: ABS Basophils 0.1 10^3/ul (0-0.2); ABS Eosinophils 0.3 10^3/ul (0-0.6); ABS Neutrophils 8.7 10^3/ul (1.5-7.7); ABS Nucleated RBC 0 10^3/ul; Eosinophil % 2.3 % (0-6); Hematocrit 43 % (35-47); Hemoglobin 14.6 g/dl (12.0-16.0); Lymphocyte % 28.6 % (25-47); Mean Corpuscular HGB Conc 34 g/dl (31-36); Mean Corpuscular Hemoglobin 29 pg (27-31); Mean Corpuscular Volume 84 fL (80-97); Mean Platelet Volume 8 um3 (7.4-10.4); Nucleated Red Blood Cells % 0; Platelet Count 451 10^3/ul (150-450); Red Blood Count 5.07 10^6/ul (4.0-5.4); Red Cell Distribution Width 14 % (10.5-15); White Blood Count 14.1 10^3/ul (3.5-10.8)
[2018-01-06 15:50] LABS: EGFR Non-African American 129.9 (>60)
[2018-01-06] MEDS: Iohexol 300* (CONTRAST) 10 ML SDV IV ONE (16:22)
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
== END 2018-01-06 17:03 | disposition home or self-care (01) ==
LOC: ED 12:52
DX: S30.1XXA Contusion of abdominal wall, initial encounter (principal); W50.0XXA Accidental hit or strike by another person, initial encounter; Y92.9 Unspecified place or not applicable; F17.200 Nicotine dependence, unspecified, uncomplicated; Z88.5 Allergy status to narcotic agent; Z88.0 Allergy status to penicillin
CPT/HCPCS: 36415; 74177; 80053; 84702; 85025; 99282; A9270-GY; Q9967

== ENCOUNTER 2018-04-16 21:19 | Emergency (ER) | payer OTHER ==
[2018-04-16] MEDS ORDERED: NS 0.9% 1000 ML* 1,000 ML IV ONE (21:42)
[2018-04-16 21:48] VITALS: BP 142/95
[2018-04-16] MEDS ORDERED: Famotidine TAB* 20 MG PO ONE (21:51)
[2018-04-16] MEDS ORDERED: predniSONE TAB* 20 MG PO ONE (21:51)
--- NOTE | 2018-04-16 22:13 | UC ---
Zuri Subramanian Julia, scribed for Deejay Dawkins MD on 04/16/18 at 2154 . Skin Complaint HPI - HPI Summary HPI Summary: This patient is a 22 year old F presenting [place] [facility] [place] sister with a chief complaint of multiple pruritic and painful insect bites to her face on 04/11/18 and again last night with more bites to the rest of her body. Pain is 5/10 in severity. Symptoms unrelieved by Benadryl and Calamine lotion. She states that while staying with her brother she believes she slept in a bed bug infested mattress. After spraying the room with bug sprays and wrapping the bed in plastic she slept in the bed last night. Bites are possibly flea bites. - History of Current Complaint Time Seen by Provider: 04/16/18 21:41 Stated Complaint: BUG BITES Hx Obtained From: Patient Hx Last Menstrual Period: 2 months ago Onset/Duration: Lasting Days Skin Exposure Onset/Duration: Days Ago Timing: Constant Onset Severity: Mild Current Severity: Moderate Pain Intensity: 5 Pain Scale Used: 0-10 Numeric Location: Diffuse Character: Pruritus, Pain, Redness Aggravating Factor(s): Other - insects Alleviating Factor(s): Nothing Associated Signs & Symptoms: Positive: Rash Related History: Insect Bite/Sting - Allergy/Home Medications Allergies/Adverse Reactions: Allergies Allergy/AdvReac Type Severity Reaction Status Date / Time ketorolac Allergy Intermediate Palpitation Verified 04/16/18 21:46 s Adhesive Tape Allergy Rash Verified 04/16/18 21:46 codeine Allergy GI Upset Verified 04/16/18 21:46 Penicillins Allergy Hives Verified 04/16/18 21:46 CRANBERRIES Allergy Hives Uncoded 04/16/18 21:46 Review of Systems Constitutional: Negative Skin: Rash, Other - erythema, pain All Other Systems Reviewed And Are Negative: Yes PMH/Surg Hx/FS Hx/Imm Hx GI/ History: Ulcer - Surgical History Surgical History: Yes Surgery Procedure, Year, and Place: 09/03 LAPARSCOPIC ABDOMEN. TONSILLECTOMY 2016 DR PALAFOX - Family History Known Family History: Positive: Hypertension - Social History Alcohol Use: None Substance Use Type: Marijuana Substance Use Comment - Amount & Last Used: OCCASIONALLY- LAST 2 MONTHS AGO Smoking Status (MU): Current Every Day Smoker Amount Used/How Often: 1/2 PPD Have You Smoked in the Last Year: Yes When Did the Patient Quit Smoking/Using Tobacco: 6 MONTHS AGO - Immunization History Most Recent Influenza Vaccination: "Years Ago" Most Recent Pneumonia Vaccination: Never Vaccination Up to Date: Yes Physical Exam - Summary Physical Exam Summary: General: well-appearing, no pain distress Skin: warm, color reflects adequate perfusion, dry, raised erythematous bug bites, 1cm in diameter diffusely spread over body, extremities, hands,and face Head: normal Eyes: EOMI, SLADE ENT: normal Neck: supple, nontender Respiratory: CTA, breath sounds present Cardiovascular: RRR Abdomen: soft, nontender Bowel: present Musculoskeletal: normal, strength/ROM intact Neurological: sensory/motor intact, A&O x3 Psychological: affect/mood appropriate Triage Information Reviewed: Yes Vital Signs: Initial Vital Signs Temp 99.8 F 04/16/18 21:35 Pulse 111 04/16/18 21:35 Resp 22 04/16/18 21:35 BP 142/95 04/16/18 21:35 Pulse Ox 98 04/16/18 21:35 Vital Signs Reviewed: Yes Course/Dx - Course Course Of Treatment: WILL TREAT WITH PEPCID/PREDNISONE AND OTC BENADRYL. DISCUSSED GETTING RID OF THE BED BUG PROBLEM. RX ELIMITE IN CASE SCABIES IS THE CAUSE. F/U PMD; RETURN IF WORSE. - Diagnoses Provider Diagnoses: ALLERGIC REACTION TO BED BUG BITES Discharge - Sign-Out/Discharge Documenting (check all that apply): Discharge/Admit/Transfer - Discharge Plan Condition: Stable Disposition: HOME Prescriptions: Famotidine TAB* [Pepcid 20 MG TAB*] 20 mg PO BID #8 tab Permethrin 5% CREAM* 30 grams TOPICAL SEE INSTRUCTIONS #1 applic predniSONE TAB* [Deltasone TAB*] 40 mg PO DAILY #8 tab Patient Education Materials: Bed Bugs (ED) Referrals: Saadia Mike DO [Primary Care Provider] - Additional Instructions: FOLLOW UP WITH YOUR DOCTOR. THE ELIMITE IS TO TREAT FOR POSSIBLE SCABIES. GET RECHECKED FOR ANY WORSENING OF YOUR CONDITION OR QUESTIONS OR CONCERNS. - Billing Disposition and Condition Condition: STABLE Disposition: HOME The documentation as recorded by the Zuri etienne Julia accurately reflects the service I personally performed and the decisions made by me, Deejay Dawkins MD.
== END 2018-04-16 22:07 | disposition home or self-care (01) ==
LOC: UCEAST 21:19
DX: T63.481A Toxic effect of venom of other arthropod, accidental (unintentional), initial encounter (principal); L25.8 Unspecified contact dermatitis due to other agents; Y92.003 Bedroom of unspecified non-institutional (private) residence as the place of occurrence of the external cause; Z88.5 Allergy status to narcotic agent; Z88.0 Allergy status to penicillin; Z91.048 Other nonmedicinal substance allergy status; Z87.891 Personal history of nicotine dependence
CPT/HCPCS: 99212; A9270-GY; G0463; J7512

== ENCOUNTER 2018-04-28 21:08 | Emergency (ER) | payer OTHER ==
[2018-04-28 22:34] LABS: ABS Basophils 0.1 10^3/ul (0-0.2); ABS Eosinophils 0.2 10^3/ul (0-0.6); ABS Monocytes 1.2 10^3/ul (0-0.8); ABS Neutrophils 10.3 10^3/ul (1.5-7.7); ABS Nucleated RBC 0 10^3/ul; Eosinophil % 1.2 % (0-6); Hematocrit 43 % (35-47); Hemoglobin 14.5 g/dl (12.0-16.0); Lymphocyte % 25.6 % (25-47); Mean Corpuscular HGB Conc 34 g/dl (31-36); Mean Corpuscular Hemoglobin 29 pg (27-31); Mean Corpuscular Volume 87 fL (80-97); Mean Platelet Volume 8.2 um3 (7.4-10.4); Nucleated Red Blood Cells % 0.1; Platelet Count 442 10^3/ul (150-450); Red Blood Count 5.02 10^6/ul (4.0-5.4); Red Cell Distribution Width 14 % (10.5-15); White Blood Count 15.8 10^3/ul (3.5-10.8)
[2018-04-28 22:44] LABS: INR 1.01 (0.77-1.02)
--- NOTE | 2018-04-28 22:46 | ED ---
GI/ HPI - HPI Summary HPI Summary: 22 female presents ER with complaints of some within suprapubic pain associated with vaginal bleeding that began earlier today. Patient states she has an IUD and has not had a menstrual cycle in 2 years. IUD was placed in 2016. States pain was sharp and shooting however is dulled to an ache. States she had heavy bleeding and is going through 1 normal sinus tampon every hour however has since down. Denies any concerns for STDs however is unsure. His sexually active. Denies any abdominal pain, nausea, vomiting, fever or chills. Normal bowel movements. No urinary complaints. Has been eating normally. No past medical history. Took naproxen earlier without relief. - History of Current Complaint Chief Complaint: EDVaginalBleeding Time Seen by Provider: 04/28/18 21:37 Stated Complaint: HEAVY BLEEDING/PELVIC PAIN Hx Obtained From: Patient Hx Last Menstrual Period: 2 years ago Onset/Duration: Started Hours Ago, Still Present Timing: Constant Severity: Severe Current Severity: Mild Vaginal Bleeding Description: Bright Red Number of Pads per Hour: 1 - tampon Pain Intensity: 7 Location of Pain: Suprapubic Additional Location for Females: Uterus Pain Characteristics: Sharp, Dull, Cramping, Aching Additional Signs & Symptoms: Positive: Vaginal Bleeding Aggravating Factor(s): Nothing Alleviating Factor(s): Nothing - Additional Pertinent History Primary Care Physician: [facility], Dr. Saadia Mike - Allergy/Home Medications Allergies/Adverse Reactions: Allergies Allergy/AdvReac Type Severity Reaction Status Date / Time ketorolac Allergy Intermediate Palpitation Verified 04/16/18 21:46 s Adhesive Tape Allergy Rash Verified 04/16/18 21:46 codeine Allergy GI Upset Verified 04/16/18 21:46 Penicillins Allergy Hives Verified 04/16/18 21:46 CRANBERRIES Allergy Hives Uncoded 04/16/18 21:46 Home Medications: Home Medications NK [No Home Medications Reported] 04/28/18 [History Confirmed 04/28/18] PMH/Surg Hx/FS Hx/Imm Hx Endocrine/Hematology History: Denies: Hx Diabetes, Hx Thyroid Disease Cardiovascular History: Denies: Hx Hypertension, Hx Pacemaker/ICD Respiratory History: Reports: Hx Asthma - Exercise Induced Denies: Hx Chronic Obstructive Pulmonary Disease (COPD) GI History: Reports: Hx Gastroesophageal Reflux Disease, Hx Irritable Bowel, Hx Ulcer, Other GI Disorders - Inflammatory Bowel History: Denies: Hx Renal Disease Musculoskeletal History: Reports: Hx Back Problems Sensory History: Reports: Hx Contacts or Glasses Denies: Hx Hearing Aid Opthamlomology History: Reports: Hx Contacts or Glasses Neurological History: Reports: Hx Migraine Psychiatric History: Reports: Hx Anxiety, Hx Attention Deficit Hyperactivity Disorder, Hx Depression, Hx Panic Disorder, Hx Inpatient Treatment, Hx Suicide Attempt, Hx of Violent Episodes Against Others Denies: Hx Eating Disorder - Surgical History Surgery Procedure, Year, and Place: 09/03 LAPARSCOPIC ABDOMEN. TONSILLECTOMY [address] DR JAVY Todd Anesthesia Reactions: No Infectious Disease History: No Infectious Disease History: Denies: Hx Hepatitis, Hx Human Immunodeficiency Virus (HIV), Traveled Outside the [place] in Last 30 Days - Family History Known Family History: Positive: None, Hypertension - Social History Alcohol Use: None Hx Substance Use: Yes Substance Use Type: Reports: Marijuana Substance Use Comment - Amount & Last Used: OCCASIONALLY- LAST 2 MONTHS AGO Hx Tobacco Use: Yes Smoking Status (MU): Current Every Day Smoker Amount Used/How Often: 1/2 PPD Have You Smoked in the Last Year: Yes Review of Systems Constitutional: Negative Cardiovascular: Negative Respiratory: Negative Gastrointestinal: Negative Positive: see HPI, discharge - bleeding Skin: Negative All Other Systems Reviewed And Are Negative: Yes Physical Exam Triage Information Reviewed: Yes Vital Signs On Initial Exam: Initial Vitals Temp Pulse Resp BP Pulse Ox 98 F 102 20 157/81 100 04/28/18 21:17 04/28/18 21:17 04/28/18 21:17 04/28/18 21:17 04/28/18 21:17 Vitals improved on recheck Vital Signs Reviewed: Yes Appearance: Positive: Well-Appearing, No Pain Distress, Well-Nourished Skin: Positive: Warm, Skin Color Reflects Adequate Perfusion, Dry. Negative: Cold, Cyanosis @, Pale, Erythema @ Head/Face: Positive: Normal Head/Face Inspection Eyes: Positive: Conjunctiva Clear ENT: Positive: Hearing grossly normal Neck: Positive: Supple, Nontender Respiratory/Lung Sounds: Positive: Clear to Auscultation, Breath Sounds Present. Negative: Rales, Rhonchi, Wheezes Cardiovascular: Positive: Normal, RRR, Pulses are Symmetrical in both Upper and Lower Extremities. Negative: Murmur, Rub Abdomen Description: Positive: Nontender, No Organomegaly, Soft, Other: - Negative rebound, Rovsing, Hernández's, psoas. Negative: CVA Tenderness (R), CVA Tenderness (L), Distended, Guarding, McBurney's Point Tenderness, Peritoneal Signs Bowel Sounds: Positive: Present Pelvic Exam: Positive: External Exam Normal, Speculum Exam Normal - IUD string in place visualized, Bimanual Exam Normal, No Cerv. Motion Tender, No Masses, Blood - scant to mild, Tender Uterus. Negative: Cervicitis, Discharge, Lesions , Tender Adnexa Musculoskeletal: Positive: Normal, Strength/ROM Intact Neurological: Positive: Normal, Sensory/Motor Intact, Alert, Oriented to Person Place, Time Diagnostics - Vital Signs Vital Signs Temp Pulse Resp BP Pulse Ox 04/28/18 21:17 98 F 102 20 157/81 100 - Laboratory Lab Results: Lab Results 04/28/18 Range/Units 21:56 WBC 15.8 H (3.5-10.8) 10^3/ul RBC 5.02 (4.0-5.4) 10^6/ul Hgb 14.5 (12.0-16.0) g/dl Hct 43 (35-47) % MCV 87 (80-97) fL MCH 29 (27-31) pg MCHC 34 (31-36) g/dl RDW 14 (10.5-15) % Plt Count 442 (150-450) 10^3/ul MPV 8.2 (7.4-10.4) um3 Neut % (Auto) 65.2 (38-83) % Lymph % (Auto) 25.6 (25-47) % Gove % (Auto) 7.7 H (0-7) % Eos % (Auto) 1.2 (0-6) % Baso % (Auto) 0.3 (0-2) % Absolute Neuts (auto) 10.3 H (1.5-7.7) 10^3/ul Absolute Lymphs (auto) 4.0 (1.0-4.8) 10^3/ul Absolute Monos (auto) 1.2 H (0-0.8) 10^3/ul Absolute Eos (auto) 0.2 (0-0.6) 10^3/ul Absolute Basos (auto) 0.1 (0-0.2) 10^3/ul Absolute Nucleated RBC 0 10^3/ul Nucleated RBC % 0.1 Result Diagrams: 04/28/18 21:56 04/28/18 21:56 Lab Statement: Any lab studies that have been ordered have been reviewed, and results considered in the medical decision making process. - Ultrasound No standard instances Ultrasound Interpretation: No Acute Changes - follicles are demonstrated within the ovaries. there is a minimal amount of free fluid present in the pelvis Ultrasound Interpretation Completed By: Radiologist OTIS Course/Dx - Course Course Of Treatment: Labs and ultrasound obtained. Ultrasound unremarkable other than mild amount of pelvic free fluid. Labs showed slight white blood cell count with slight CRP elevation however patient did have pain and stress event Appears patient may have had ovarian cyst that ruptured. Also having dysfunctional uterine bleeding/menses. Appears that's what pain and symptoms are coming from. Normal vitals and physical exam otherwise. Patient is aware worsening signs and symptoms watch out for. Negative urinalysis. Pending firm and GC plan cultures. Continue heating pads, ibuprofen and Tylenol. Follow-up with [facility]. reviewed case with Dr Lynch.patient agrees and understands plan, "wanted to make sure her uterus didn't rupture from the IUD" - Diagnoses Differential Diagnoses - Female: Ovarian Cyst, Other - menses, vaginal bleeding , suprapubic pain, dysfunctional uterine bleeding, ruptured ovarian cyst, pelvic free fluid Provider Diagnoses: Suprapubic pain, acute, Vaginal bleeding Discharge - Sign-Out/Discharge Documenting (check all that apply): Discharge/Admit/Transfer - Discharge Plan Condition: Stable Disposition: HOME Patient Education Materials: Dysfunctional Uterine Bleeding (ED) Referrals: Saadia Mike DO [Primary Care Provider] - Lalita Andrews MD [Medical Doctor] - Additional Instructions: Continue tylenol/ibuprofen for pain and discomfort. heating pad. increase fluids, high iron diet. follow up OBGYN any new or worsening symptoms please seek medical attention as we discussed. - Billing Disposition and Condition Condition: STABLE Disposition: Home
[2018-04-28 22:52] LABS: EGFR Non-African American 118.3 (>60)
[2018-04-28] MEDS ORDERED: Ibuprofen TAB* 600 MG PO ONE (23:11)
[2018-04-28 23:31] LABS: Urine Appearance Cloudy; Urine Blood 2+ (Negative); Urine Color Yellow; Urine Ketones Negative (Negative); Urine Protein Negative (Negative); Urine Specific Gravity 1.015 (1.010-1.030); Urine Urobilinogen Negative (Negative)
[2018-04-29 00:04] VITALS: BP 136/59
--- NOTE | 2018-04-29 07:36 | RAD ---
HISTORY: vaginal bleeding, pain COMPARISONS: CT dated January 06, 2018 TECHNIQUE: Multiple transverse and longitudinal ultrasound images were obtained of the pelvis using grayscale, color Doppler, and spectral Doppler imaging using the endovaginal transducer. FINDINGS: UTERUS: The uterus measures 6.5 x 3.4 x 4.1 cm. The uterus is normal in shape, size, contour, and echotexture. ENDOMETRIUM: The endometrial stripe is smooth. The endometrium measures 0.6 cm in thickness. An IUD is noted centrally within the endometrial cavity towards the fundus. CUL-DE-SAC: There is a small amount of simple fluid within the cul-de-sac. This may be physiologic in a reproductive age female. RIGHT OVARY: The right ovary measures 3.6 x 2.4 x 1.6 cm. Multiple follicles are noted. Normal arterial and venous waveforms are identifiable within the ovary on spectral Doppler imaging. LEFT OVARY: The left ovary measures 3.4 x 2.2 x 1.9 cm. Multiple follicles are noted. Normal arterial and venous waveforms are identifiable within the ovary on spectral Doppler imaging. BLADDER: The bladder is not well visualized. OTHER: None IMPRESSION: NO ACUTE SONOGRAPHIC PATHOLOGY OF THE VISUALIZED PORTION OF THE PELVIS. NO SONOGRAPHIC FEATURES OF TORSION. PLEASE NOTE THAT PARTIAL OR INTERMITTENT TORSION MAY BE SONOGRAPHICALLY NORMAL.
--- NOTE | 2018-04-30 17:26 | PN ---
Progress Note - Progress Note Date of Service: 04/28/18 Note: Pt. seen in the ER 04/28/18 for pelvic pain. Vaginal cultures were obtained. Vaginal culture today is positive for gardnerella. Attempted to call pt. today at [phone] with no response. Voicemail left to return call to ER.
--- NOTE | 2018-05-02 16:50 | PN ---
Progress Note - Progress Note Date of Service: 05/02/18 Note: patient called back and not have any symptoms so will not treat
== END 2018-04-29 | disposition home or self-care (01) ==
LOC: ED 21:08
DX: R10.30 Lower abdominal pain, unspecified (principal); N93.9 Abnormal uterine and vaginal bleeding, unspecified; F17.210 Nicotine dependence, cigarettes, uncomplicated; J45.990 Exercise induced bronchospasm; K21.9 Gastro-esophageal reflux disease without esophagitis; K58.9 Irritable bowel syndrome, unspecified; Z97.5 Presence of (intrauterine) contraceptive device; Z88.0 Allergy status to penicillin; Z88.5 Allergy status to narcotic agent
CPT/HCPCS: 36415; 76830; 80053; 81003; 81015; 83605; 84702; 85025; 85610; 85730; 86140; 87086; 87480; 87491; 87510; 87591; 87661; 99282; A9270-GY

== ENCOUNTER 2018-07-20 15:39 | Emergency (ER) | payer OTHER ==
[2018-07-20] MEDS ORDERED: LORazepam TAB(*) 1 MG PO ONE (16:55)
[2018-07-20] MEDS ORDERED: diPHENhydraMINE PO* 50 MG PO ONE (16:55)
[2018-07-20] MEDS ORDERED: Haloperidol TAB* 5 MG PO ONE (16:55)
[2018-07-20 17:45] LABS: Urine Appearance Cloudy; Urine Blood 2+ (Negative); Urine Color Yellow; Urine Ketones Negative (Negative); Urine Protein 2+(100 mg/dL) (Negative); Urine Red Blood Cell 1+(3-5/hpf) (Absent); Urine Specific Gravity 1.015 (1.010-1.030); Urine Urobilinogen Negative (Negative); Urine White Blood Cell 3+(>20/hpf) (Absent)
[2018-07-20 18:17] LABS: ABS Basophils 0.1 10^3/ul (0-0.2); ABS Eosinophils 0.2 10^3/ul (0-0.6); ABS Lymphocytes 3.6 10^3/ul (1.0-4.8); ABS Monocytes 1.1 10^3/ul (0-0.8); ABS Neutrophils 8.7 10^3/ul (1.5-7.7); ABS Nucleated RBC 0 10^3/ul; Eosinophil % 1.5 % (0-6); Hematocrit 39 % (35-47); Hemoglobin 13.1 g/dl (12.0-16.0); Lymphocyte % 26.5 % (25-47); Mean Corpuscular HGB Conc 34 g/dl (31-36); Mean Corpuscular Hemoglobin 29 pg (27-31); Mean Corpuscular Volume 86 fL (80-97); Nucleated Red Blood Cells % 0; Platelet Count 394 10^3/ul (150-450); Red Blood Count 4.56 10^6/ul (4.00-5.40); Red Cell Distribution Width 14 % (10.5-15); White Blood Count 13.7 10^3/ul (3.5-10.8)
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
[2018-07-20 18:41] LABS: EGFR Non-African American 136.7 (>60)
--- NOTE | 2018-07-21 00:40 | ED ---
Progress - Progress Note Progress Note: Patient was received as a sign out from Dr. Gutierrez to Dr. Beck at 2200 on Patient's case was discussed with Dr. Kendrick at 0030. She will be discharged to home with Dx of adjustment disorder with disturbance of conduct and emotions - Consult/PCP Time Called: 22:33 Course/Dx - Course Course Of Treatment: A 23 y/o female CLINTONP presents to ED c/o running out of medications and s/p outburst. Currently she feels as if she is going to jump out of her skin. No laboratory scans were done. Blood work and UA were done and all were within normal limits. In the ED course, the patient recieved Haldol, Benadryl and Ativan. Patient is signed out to Dr. Joni Beck via Dr. Cruz Gutierrez, pending MHE, awaiting medical clearance and disposition during shift change at 2200 on June. Patient will be signed out with a diagnosis of depression. - Diagnoses Provider Diagnoses: Adjustment disorder with disturbance of emotion, Adjustment disorder with disturbance of conduct - Provider Notifications Discussed Care Of Patient With: Trevin Kendrick Time Discussed With Above Provider: 00:30 Instructed by Provider To: Other - Discussed patient's case with Dr. Kendrick at 0300. Patient will be admitted to [facility] [place] by [place]. Kendrick Discharge - Sign-Out/Discharge Documenting (check all that apply): Patient Departure - discharge Signing out patient TO: Trevin Kendrick Receiving patient FROM: Joni Beck - Discharge Plan Condition: Stable Disposition: HOME Patient Education Materials: Mood Disorders (ED) Referrals: [facility] [Outside] (Please follow up as soon as possible) Saadia Mike, DO [Primary Care Provider] - - Attestation Statements Document Initiated by Scribe: Yes Documenting Scribe: Fabiano Noel Provider For Whom Scribe is Documenting (Include Credential): Joni Beck MD Scribe Attestation: Fabiano Subramanian, scribed for Joni Beck MD on 07/21/18 at 0155.
[2018-07-21 00:56] VITALS: BP 129/75
== END 2018-07-21 00:50 | disposition home or self-care (01) ==
LOC: ED 15:39
DX: F32.9 Major depressive disorder, single episode, unspecified (principal); F43.25 Adjustment disorder with mixed disturbance of emotions and conduct; F31.9 Bipolar disorder, unspecified; F60.3 Borderline personality disorder; F41.9 Anxiety disorder, unspecified; F17.200 Nicotine dependence, unspecified, uncomplicated; Z88.0 Allergy status to penicillin; Z88.5 Allergy status to narcotic agent; Z88.8 Allergy status to other drugs, medicaments and biological substances
CPT/HCPCS: 36415; 80053; 80307; 80320; 80329; 81003; 81015; 84443; 84702; 85025; 87077; 87086; 99284; A9270-GY; G0480

== ENCOUNTER 2019-09-05 17:33 | Emergency (ER) | payer OTHER ==
[2019-09-05 17:55] VITALS: BP 129/77
--- NOTE | 2019-09-05 19:19 | UC ---
Throat Pain/Nasal Gt HPI - HPI Summary HPI Summary: 24-year-old female with history of asthma presents with 2 week history of nasal congestion, runny nose, and occasionally productive cough for clear sputum. Symptoms are associated with intermittent headache, achy neck, general malaise, and fatigue. States she has not needed to use her albuterol inhaler. Denies fever, chills, sore throat, chest pain, shortness of breath, or wheezing. - History of Current Complaint Chief Complaint: UCRespiratory Stated Complaint: COLD SYMPTOMS, SORE THROAT, NECK PAIN Time Seen by Provider: 09/05/19 18:59 Hx Obtained From: Patient Hx Last Menstrual Period: 09/05/19 Pain Intensity: 7 - Allergies/Home Medications Allergies/Adverse Reactions: Allergies Allergy/AdvReac Type Severity Reaction Status Date / Time ketorolac Allergy Intermediate Palpitation Verified 09/05/19 17:55 s Adhesive Tape Allergy Rash Verified 09/05/19 17:55 codeine Allergy GI Upset Verified 09/05/19 17:55 Penicillins Allergy Hives Verified 09/05/19 17:55 CRANBERRIES Allergy Hives Uncoded 07/20/18 15:53 Home Medications: Home Medications ALPRAZolam TAB* [Xanax TAB*] 1 mg PO DAILY 09/05/19 [History Confirmed 09/05/19] ARIPiprazole TAB* [Abilify TAB*] 10 mg PO 09/05/19 [History] Albuterol HFA INHALER* [Ventolin HFA Inhaler*] 1 puff INH Q6HR 09/05/19 [ History Confirmed 09/05/19] busPIRone TAB* [Buspar TAB*] 7.5 mg PO BID 09/05/19 [History Confirmed 09/05/19] PMH/Surg Hx/FS Hx/Imm Hx Respiratory History: Asthma GI/ History: Gastroesophageal Reflux, Other - IBS Psychological History: Anxiety, Depression - Surgical History Surgical History: Yes Surgery Procedure, Year, and Place: 09/03 LAPARSCOPIC ABDOMEN. TONSILLECTOMY 2016 DR PALAFOX - Family History Known Family History: Positive: Hypertension - Social History Occupation: Unemployed Lives: With Family Alcohol Use: Occasionally Substance Use Type: Marijuana Substance Use Comment - Amount & Last Used: weekly Smoking Status (MU): Light Every Day Tobacco Smoker Amount Used/How Often: 1/2 PPD less than Have You Smoked in the Last Year: Yes When Did the Patient Quit Smoking/Using Tobacco: 6 MONTHS AGO Household Exposure Type: Cigarettes - Immunization History Most Recent Influenza Vaccination: "Years Ago" Most Recent Pneumonia Vaccination: Never Vaccination Up to Date: Yes Review of Systems All Other Systems Reviewed And Are Negative: Yes Constitutional: Positive: Fatigue. Negative: Fever, Chills Skin: Negative: Rash Eyes: Negative: Drainage, Eye Redness ENT: Positive: Nasal Discharge, Sinus Congestion. Negative: Sore Throat, Ear Ache, Sinus Pain/Tenderness Respiratory: Positive: Cough. Negative: Shortness Of Breath, Other - Wheezing Cardiovascular: Negative: Palpitations, Chest Pain Gastrointestinal: Negative: Abdominal Pain, Vomiting, Nausea Genitourinary: Positive: Negative Musculoskeletal: Positive: Negative Neurological: Positive: Negative Is Patient Immunocompromised?: No Physical Exam - Summary Physical Exam Summary: GENERAL APPEARANCE: Alert and cooperative obese female who appears to be in no acute distress. EYES: Conjunctiva clear. No drainage. EARS: External auditory canals and tympanic membranes clear, hearing grossly intact. NOSE: Moderate nasal congestion. No nasal discharge. No sinus tenderness. THROAT: Pharynx normal. Tonsils surgically absent. Uvula midline. NECK: Neck supple, non-tender without lymphadenopathy. CARDIAC: Normal S1 and S2. No S3, S4 or murmurs. Rhythm is regular. There is no peripheral edema, cyanosis or pallor. Extremities are warm and well perfused. Capillary refill is less than 2 seconds. Peripheral pulses intact. LUNGS: Diffuse bilateral wheezes. Non-productive bronchospastic cough. ABDOMEN: Positive bowel sounds. Soft, nondistended, nontender. No guarding or rebound. No masses or hepatosplenomegally. MUSKULOSKELETAL: ROM intact to all extremities. No joint erythema or tenderness. Normal muscular development. Normal gait. SKIN: Skin normal color, texture and turgor with no lesions or eruptions. Triage Information Reviewed: Yes Vital Signs: Initial Vital Signs Temp 98.3 F 09/05/19 17:49 Pulse 83 09/05/19 17:49 Resp 18 09/05/19 17:49 BP 129/77 09/05/19 17:49 Pulse Ox 98 09/05/19 17:49 Vital Signs Reviewed: Yes Throat Pain/Nasal Course/Dx - Course Course Of Treatment: 24-year-old female with history of asthma presents with 2 week history of nasal congestion, runny nose, and occasionally productive cough for clear sputum. Symptoms are associated with intermittent headache, achy neck, general malaise, and fatigue. States she has not needed to use her albuterol inhaler. Denies fever, chills, sore throat, chest pain, shortness of breath, or wheezing. Afebrile. Vital signs stable. Patient had moderate nasal congestion, diffuse bilateral wheezes, and productive bronchospastic cough, and otherwise unremarkable exam. Considering the duration of her symptoms will treat her with an antibiotic for an upper respiratory infection with asthma exacerbation. She is to start doxycycline 100 mg twice a day 14 days. I will also place her on a short course of prednisone 50 mg daily 5 days to help with the exacerbation and she was encouraged to use her albuterol inhaler as directed. She is to follow-up with her primary care provider in 3-5 days for recheck of symptoms especially if symptoms are not improving. Anticipatory guidance and warning symptoms were reviewed with the patient. Verbalizes understanding and agrees with plan of care. - Differential Dx/Diagnosis Differential Diagnosis/HQI/PQRI: Pharyngitis, Sinusitis, URI Provider Diagnosis: URI (upper respiratory infection), Asthma exacerbation Discharge ED - Sign-Out/Discharge Documenting (check all that apply): Patient Departure All imaging exams completed and their final reports reviewed: No Studies - Discharge Plan Condition: Stable Disposition: HOME Prescriptions: Doxycycline Hyclate 100 mg PO BID #14 tablet predniSONE TAB* [Deltasone TAB*] 50 mg PO DAILY #5 tab Patient Education Materials: Asthma (ED), Upper Respiratory Infection (ED) Referrals: No Primary Care Phys,NOPCP [Primary Care Provider] - Additional Instructions: Your history and exam are consistent with an upper respiratory infection with asthma exacerbation. Considering the duration of your symptoms we will start you on an antibiotic. Start doxycycline 100 mg 1 tablet twice a day for 7 days. Do not drink milk, eat milk products, or takes supplements containing calcium for at least 2 hours before after taking this medication as the calcium can affect the absorption. This antibiotic will also make you more sensitive to the sunlight therefore it is recommended that you try to avoid sun exposure while taking. If you must be outdoors take appropriate precautions including sunscreen, long sleeves, and hat. Start prednisone 50 mg 1 tablet daily for 5 days to help with the airway inflammation and wheezing. Use your albuterol inhaler 2 puffs every 4-6 hours as needed for shortness of breath, wheezing, or coughing fits. Drink plenty of fluids to avoid dehydration especially if you are running any fever. Use a saline rinse kit such as Neti Pot or NeilMed at least twice a day to help thin secretions and promote drainage of the sinuses. Use an [id number] decongestant such as Sudafed according to directions to help with decongestion. Take over the counter acetaminophen (Tylenol) or ibuprofen (Advil, Motrin) according to directions as needed for pain or fever. Return here or follow up with your primary care provider in 3-5 days if symptoms persist. Seek immediate medical attention in the emergency room if you have fever greater than 100.5 F despite taking acetaminophen or ibuprofen, have chest pain , difficulty breathing, or have any worsening of symptoms. - Billing Disposition and Condition Condition: STABLE Disposition: Home - Attestation Statements Provider Attestation: Per institutional requirements, I have reviewed the chart, however, I was not consulted specifically or made aware of this patient by the midlevel provider. I did not personally evaluate, interact with , or disposition this patient.
== END 2019-09-05 19:45 | disposition home or self-care (01) ==
LOC: UCEAST 17:33
DX: J06.9 Acute upper respiratory infection, unspecified (principal); J45.901 Unspecified asthma with (acute) exacerbation; K58.9 Irritable bowel syndrome, unspecified; K21.9 Gastro-esophageal reflux disease without esophagitis; F32.9 Major depressive disorder, single episode, unspecified; F41.9 Anxiety disorder, unspecified; F17.210 Nicotine dependence, cigarettes, uncomplicated; Z79.899 Other long term (current) drug therapy; Z88.5 Allergy status to narcotic agent; Z91.09 Other allergy status, other than to drugs and biological substances; Z88.0 Allergy status to penicillin; Z91.018 Allergy to other foods
CPT/HCPCS: 99212; G0463

== ENCOUNTER 2019-10-15 20:19 | Emergency (ER) | payer OTHER ==
--- NOTE | 2019-10-15 21:14 | ED ---
Abdominal Pain/Female - HPI Summary HPI Summary: Patient complains of right lower quadrant pain 2 days. Associated nausea. Pain initially intermittent, now constant, at worst 8/10, worse with movement. Pain described as stabbing. Denies fever, cough, sore throat, CP, V/D, change in urine, change in BM, vaginal symptoms. History of ovarian cysts. No prior history of kidney stones. Patient has history of IBS, but states this is very different pain. Eating and drinking normally. Took ibuprofen at 6 PM without relief. Medical history is IBS. Abdominal surgical history is none. LMP now. - History of Current Complaint Chief Complaint: EDHipPelvisInjury Stated Complaint: PAIN GROIN AREA PER PT Time Seen by Provider: 10/15/19 20:56 Hx Obtained From: Patient Hx Last Menstrual Period: 09/05/19 Onset/Duration: Gradual Onset, Lasting Days Timing: Constant Severity Initially: Severe Severity Currently: Severe Pain Intensity: 8 Pain Scale Used: 0-10 Numeric Location: Discrete At: RLQ Radiates: No Character: Sharp Aggravating Factor(s): Movement Alleviating Factor(s): Nothing Associated Signs and Symptoms: Positive: Nausea Allergies/Adverse Reactions: Allergies Allergy/AdvReac Type Severity Reaction Status Date / Time ketorolac Allergy Intermediate Palpitation Verified 10/15/19 20:22 s Adhesive Tape Allergy Rash Verified 10/15/19 20:22 codeine Allergy GI Upset Verified 10/15/19 20:22 Penicillins Allergy Hives Verified 10/15/19 20:22 CRANBERRIES Allergy Hives Uncoded 10/15/19 20:22 PMH/Surg Hx/FS Hx/Imm Hx Endocrine/Hematology History: Denies: Hx Diabetes, Hx Thyroid Disease Cardiovascular History: Denies: Hx Hypertension, Hx Pacemaker/ICD Respiratory History: Reports: Hx Asthma - Exercise Induced Denies: Hx Chronic Obstructive Pulmonary Disease (COPD) GI History: Reports: Hx Gastroesophageal Reflux Disease, Hx Irritable Bowel, Hx Ulcer, Other GI Disorders - Inflammatory Bowel History: Denies: Hx Renal Disease Musculoskeletal History: Reports: Hx Back Problems Sensory History: Reports: Hx Contacts or Glasses Opthamlomology History: Reports: Hx Contacts or Glasses EENT History: Denies: Hx Deafness Neurological History: Reports: Hx Migraine Psychiatric History: Reports: Hx Anxiety, Hx Attention Deficit Hyperactivity Disorder, Hx Depression, Hx Panic Disorder, Hx Inpatient Treatment, Hx Suicide Attempt, Hx of Violent Episodes Against Others Denies: Hx Eating Disorder - Surgical History Surgery Procedure, Year, and Place: 09/03 LAPARSCOPIC ABDOMEN. TONSILLECTOMY [address] DR JAVY Todd Anesthesia Reactions: No - Immunization History Immunizations Up to Date: Yes Infectious Disease History: No Infectious Disease History: Denies: Hx Hepatitis, Hx Human Immunodeficiency Virus (HIV), Traveled Outside the [place] in Last 30 Days - Family History Known Family History: Positive: Hypertension - Social History Alcohol Use: Occasionally Hx Substance Use: Yes Substance Use Type: Reports: Marijuana Substance Use Comment - Amount & Last Used: weekly Hx Tobacco Use: Yes Smoking Status (MU): Light Every Day Tobacco Smoker Amount Used/How Often: 1/2 PPD less than Have You Smoked in the Last Year: Yes Review of Systems Constitutional: Negative Eyes: Negative ENT: Negative Cardiovascular: Negative Respiratory: Negative Positive: Abdominal Pain, Nausea Genitourinary: Negative Musculoskeletal: Negative Skin: Negative Neurological: Negative Psychological: Normal All Other Systems Reviewed And Are Negative: Yes Physical Exam - Summary Physical Exam Summary: Tenderness in right lower quadrant, abdominal exam otherwise unremarkable. Triage Information Reviewed: Yes Vital Signs On Initial Exam: Initial Vitals Temp Pulse Resp BP Pulse Ox 98.4 F 104 16 118/82 97 10/15/19 20:21 10/15/19 20:21 10/15/19 20:21 10/15/19 20:21 10/15/19 20:21 Vital Signs Reviewed: Yes Appearance: Positive: Well-Appearing Skin: Positive: Warm Head/Face: Positive: Normal Head/Face Inspection Eyes: Positive: Normal Neck: Positive: Supple Respiratory/Lung Sounds: Positive: Clear to Auscultation Cardiovascular: Positive: Normal Abdomen Description: Positive: Other: Musculoskeletal: Positive: Normal Neurological: Positive: Normal Psychiatric: Positive: Normal AVPU Assessment: Alert - Jair Coma Scale Best Eye Response: 4 - Spontaneous Best Motor Response: 6 - Obeys Commands Best Verbal Response: 5 - Oriented Coma Scale Total: 15 Procedures - Sedation Patient Received Moderate/Deep Sedation with Procedure: No Diagnostics - Vital Signs Vital Signs Temp Pulse Resp BP Pulse Ox 10/15/19 20:21 98.4 F 104 16 118/82 97 - Laboratory Result Diagrams: 10/15/19 21:17 10/15/19 21:17 Lab Statement: Any lab studies that have been ordered have been reviewed, and results considered in the medical decision making process. Abdominal Pain Fem Course/Dx - Course Course Of Treatment: Patient complains of right lower quadrant pain 2 days. Associated nausea. Pain initially intermittent, now constant, at worst 8/10, worse with movement. Pain described as stabbing. Denies fever, cough, sore throat, CP, V/D, change in urine, change in BM, vaginal symptoms. History of ovarian cysts. No prior history of kidney stones. Patient has history of IBS, but states this is very different pain. Eating and drinking normally. Took ibuprofen at 6 PM without relief. Medical history is IBS. Abdominal surgical history is none. LMP now. Vital signs within normal limits. WBC 12.3. Labs otherwise unremarkable. Transvaginal ultrasound unremarkable. CT abdomen and pelvis with IV contrast unremarkable. Patient deferred pelvic exam at this time , will follow-up with [facility]. - Diagnoses Provider Diagnoses: RLQ abdominal pain Discharge ED - Sign-Out/Discharge Documenting (check all that apply): Patient Departure - Discharge Plan Condition: Stable Disposition: HOME Prescriptions: Oxycodone HCl 5 mg PO BID 2 Days #4 tablet MDD 2 tabs Patient Education Materials: Abdominal Pain (ED) Forms: *Work Release Referrals: No Primary Care Phys,NOPCP [Primary Care Provider] - Additional Instructions: Alternate ibuprofen 600 mg with Tylenol 650 mg every 3 hours as needed for pain. Follow up with [facility] for further evaluation of right lower quadrant pain. Return to the ED for any new or worsening symptoms. - Billing Disposition and Condition Condition: STABLE Disposition: Home
[2019-10-15 21:23] LABS: ABS Eosinophils 0.4 10^3/ul (0-0.6); ABS Lymphocytes 3.8 10^3/ul (1.0-4.8); ABS Neutrophils 7.2 10^3/ul (1.5-7.7); Eosinophil % 3.1 %; Hematocrit 40 % (35-47); Lymphocyte % 30.5 %; Mean Corpuscular HGB Conc 35 g/dL (31-36); Mean Corpuscular Hemoglobin 29 pg (27-31); Mean Corpuscular Volume 85 fL (80-97); Mean Platelet Volume 8.1 fL (7.4-10.4); Platelet Count 383 10^3/uL (150-450); Red Blood Count 4.77 10^6 /uL (3.70-4.87); Red Cell Distribution Width 13 % (10-15); White Blood Count 12.3 10^3/uL (3.5-10.8)
[2019-10-15 21:46] LABS: HCG Pregnancy < 0.60 mIU/mL
[2019-10-15 22:02] LABS: Albumin 4.3 g/dL (3.2-5.2); Anion Gap 7 mmol/L (2-11); CO2 Carbon Dioxide 24 mmol/L (22-32); Calcium 9.7 mg/dL (8.6-10.3); Chloride 106 mmol/L (101-111); Potassium 3.8 mmol/L (3.5-5.0); Sodium 137 mmol/L (135-145)
[2019-10-15 22:08] LABS: ALT 11 U/L (7-52); AST 14 U/L (13-39); Albumin/Globulin Ratio 1.4 (1-3); Alkaline Phosphatase 55 U/L (34-104); BUN/Creatinine Ratio 18.5 (8-20); Blood Urea Nitrogen 12 mg/dL (6-24); C Reactive Protein 6.77 mg/L (<8.01); EGFR African American 137.9 (>60); Globulin 3.1 g/dL (2-4); Glucose 94 mg/dL (70-100); Total Protein 7.4 g/dL (6.4-8.9)
[2019-10-15 22:23] LABS: Urine Appearance Clear; Urine Bilirubin Negative (Negative); Urine Blood Negative (Negative); Urine Color Yellow; Urine Glucose Negative (Negative); Urine Ketones Trace (Negative); Urine Nitrite Negative (Negative); Urine Protein Negative (Negative); Urine Specific Gravity 1.021 (1.010-1.030); Urine Urobilinogen Negative (Negative)
[2019-10-15 22:26] LABS: Urine Bacteria Absent (Absent); Urine Red Blood Cell Trace(0-2/hpf) (Absent); Urine Squamous Epithelial Cell Present (Absent); Urine White Blood Cell 1+(6-10/hpf) (Absent)
[2019-10-15] MEDS ORDERED: oxyCODONE TAB* 5 MG TAB PO ONE (22:56)
[2019-10-15] MEDS ORDERED: Morphine 4 MG/ML VIAL (1 ml) 4 MG/ML VIAL IV ONE (23:02)
[2019-10-15] MEDS ORDERED: Ondansetron INJ* 2 MG/ML VIAL IV ONE (23:02)
[2019-10-15] MEDS ORDERED: Iohexol 300* (CONTRAST) 10 ML SDV IV ONE (23:18)
[2019-10-16 00:18] VITALS: BP 112/74
== END 2019-10-16 00:49 | disposition home or self-care (01) ==
LOC: ED 20:19
DX: R10.31 Right lower quadrant pain (principal); J45.909 Unspecified asthma, uncomplicated; K21.9 Gastro-esophageal reflux disease without esophagitis; F41.9 Anxiety disorder, unspecified; F90.9 Attention-deficit hyperactivity disorder, unspecified type; F17.200 Nicotine dependence, unspecified, uncomplicated; Z88.5 Allergy status to narcotic agent; Z88.0 Allergy status to penicillin; Z88.8 Allergy status to other drugs, medicaments and biological substances
CPT/HCPCS: 36415; 74177; 76830; 80053; 81003; 81015; 83605; 84702; 85025; 86140; 87086; 96374; 96375; 99283; J2270; J2405; Q9967

== ENCOUNTER 2019-10-18 19:07 | Emergency (ER) | payer OTHER ==
[2019-10-18 20:28] LABS: ABS Basophils 0.1 10^3/ul (0-0.2); ABS Eosinophils 0.2 10^3/ul (0-0.6); ABS Lymphocytes 3.4 10^3/ul (1.0-4.8); ABS Neutrophils 8.1 10^3/ul (1.5-7.7); Eosinophil % 1.9 %; Hematocrit 41 % (35-47); Hemoglobin 14.2 g/dL (12.0-16.0); Lymphocyte % 26.7 %; Mean Corpuscular HGB Conc 35 g/dL (31-36); Mean Corpuscular Hemoglobin 30 pg (27-31); Mean Corpuscular Volume 85 fL (80-97); Mean Platelet Volume 8.1 fL (7.4-10.4); Platelet Count 391 10^3/uL (150-450); Red Cell Distribution Width 13 % (10-15); White Blood Count 12.9 10^3/uL (3.5-10.8)
[2019-10-18 20:50] LABS: ALT 16 U/L (7-52); AST 17 U/L (13-39); Albumin 4.3 g/dL (3.2-5.2); Albumin/Globulin Ratio 1.3 (1-3); Alkaline Phosphatase 51 U/L (34-104); Anion Gap 6 mmol/L (2-11); BUN/Creatinine Ratio 12.7 (8-20); Blood Urea Nitrogen 9 mg/dL (6-24); C Reactive Protein 3.85 mg/L (<8.01); CO2 Carbon Dioxide 26 mmol/L (22-32); Calcium 9.9 mg/dL (8.6-10.3); Chloride 107 mmol/L (101-111); EGFR African American 124.6 (>60); EGFR Non-African American 102.9 (>60); Globulin 3.2 g/dL (2-4); Glucose 105 mg/dL (70-100); Potassium 3.5 mmol/L (3.5-5.0); Sodium 139 mmol/L (135-145); Total Protein 7.5 g/dL (6.4-8.9)
[2019-10-18 20:53] LABS: HCG Pregnancy < 0.60 mIU/mL
[2019-10-18] MEDS ORDERED: Ondansetron ODT TAB* 4 MG PO ONE (21:13)
[2019-10-18 21:30] LABS: Urine Appearance Cloudy; Urine Bilirubin Negative (Negative); Urine Blood Negative (Negative); Urine Color Amber; Urine Glucose Negative (Negative); Urine Ketones 1+ (Negative); Urine Nitrite Negative (Negative); Urine Protein Negative (Negative); Urine Specific Gravity 1.031 (1.010-1.030); Urine Urobilinogen Positive (Negative)
[2019-10-18 21:31] LABS: Urine Bacteria Absent (Absent); Urine Red Blood Cell Absent (Absent); Urine Squamous Epithelial Cell Present (Absent); Urine White Blood Cell 1+(6-10/hpf) (Absent)
--- NOTE | 2019-10-18 21:40 | ED ---
Abdominal Pain/Female - HPI Summary HPI Summary: 24 year old female who presents with right lower quadrant pain since that is associated with nausea and vomiting. The pain was intermittent, but has become more constant. She was seen 3 days ago and had an U/S and abdominal CT, which were unremarkable. Was seen at [facility] yesterday and states that she had negative gonorrhea and chlamydia cultures. Denies urinary frequency , dysuria, or hematuria. Denies fever. PMH of PCOS. Had ruptured ovarian cyst 1 year ago. - History of Current Complaint Chief Complaint: EDAbdPain Stated Complaint: ABD PAIN PER PT Time Seen by Provider: 10/18/19 20:13 Hx Last Menstrual Period: 09/05/19 Pain Intensity: 6 Allergies/Adverse Reactions: Allergies Allergy/AdvReac Type Severity Reaction Status Date / Time ketorolac Allergy Intermediate Palpitation Verified 10/18/19 19:25 s Adhesive Tape Allergy Rash Verified 10/18/19 19:25 codeine Allergy GI Upset Verified 10/18/19 19:25 Penicillins Allergy Hives Verified 10/18/19 19:25 CRANBERRIES Allergy Hives Uncoded 10/18/19 19:25 PMH/Surg Hx/FS Hx/Imm Hx Endocrine/Hematology History: Denies: Hx Diabetes, Hx Thyroid Disease Cardiovascular History: Denies: Hx Hypertension, Hx Pacemaker/ICD Respiratory History: Reports: Hx Asthma - Exercise Induced Denies: Hx Chronic Obstructive Pulmonary Disease (COPD) GI History: Reports: Hx Gastroesophageal Reflux Disease, Hx Irritable Bowel, Hx Ulcer, Other GI Disorders - Inflammatory Bowel History: Denies: Hx Renal Disease Musculoskeletal History: Reports: Hx Back Problems Sensory History: Reports: Hx Contacts or Glasses Denies: Hx Deafness Opthamlomology History: Reports: Hx Contacts or Glasses Neurological History: Reports: Hx Migraine Psychiatric History: Reports: Hx Anxiety, Hx Attention Deficit Hyperactivity Disorder, Hx Depression, Hx Panic Disorder, Hx Inpatient Treatment, Hx Suicide Attempt, Hx of Violent Episodes Against Others Denies: Hx Eating Disorder - Surgical History Surgery Procedure, Year, and Place: 09/03 LAPARSCOPIC ABDOMEN. TONSILLECTOMY [address] DR JAVY Todd Anesthesia Reactions: No Infectious Disease History: No Infectious Disease History: Denies: Hx Hepatitis, Hx Human Immunodeficiency Virus (HIV), Traveled Outside the [place] in Last 30 Days - Family History Known Family History: Positive: Hypertension - Social History Alcohol Use: Occasionally Hx Substance Use: Yes Substance Use Type: Reports: Marijuana Substance Use Comment - Amount & Last Used: weekly Hx Tobacco Use: Yes Smoking Status (MU): Light Every Day Tobacco Smoker Amount Used/How Often: 1/2 PPD less than Have You Smoked in the Last Year: Yes Review of Systems Constitutional: Negative Eyes: Negative ENT: Negative Cardiovascular: Negative Respiratory: Negative Positive: Abdominal Pain, Vomiting, Nausea Genitourinary: Negative Musculoskeletal: Negative Skin: Negative Neurological: Negative Psychological: Normal All Other Systems Reviewed And Are Negative: Yes Physical Exam Triage Information Reviewed: Yes Vital Signs On Initial Exam: Initial Vitals Temp Pulse Resp BP Pulse Ox 98.8 F 102 16 112/80 98 10/18/19 19:20 10/18/19 19:20 10/18/19 19:20 10/18/19 19:20 10/18/19 19:20 Vital Signs Reviewed: Yes Appearance: Positive: Well-Appearing, No Pain Distress, Well-Nourished Skin: Positive: Warm, Skin Color Reflects Adequate Perfusion, Dry Head/Face: Positive: Normal Head/Face Inspection Eyes: Positive: Normal, EOMI, SLDAE ENT: Positive: Normal ENT inspection Neck: Positive: Supple, Nontender, No Lymphadenopathy Respiratory/Lung Sounds: Positive: Clear to Auscultation, Breath Sounds Present Cardiovascular: Positive: Normal, RRR, S1, S2 Abdomen Description: Positive: No Organomegaly, Soft, Other: - RLQ tenderness Musculoskeletal: Positive: Normal Neurological: Positive: Normal Psychiatric: Positive: Normal, Affect/Mood Appropriate Procedures - Sedation Patient Received Moderate/Deep Sedation with Procedure: No Diagnostics - Vital Signs Vital Signs Temp Pulse Resp BP Pulse Ox 10/18/19 19:20 98.8 F 102 16 112/80 98 - Laboratory Lab Results: Lab Results 10/18/19 10/18/19 10/18/19 Range/Units 20:19 20:19 20:19 WBC 12.9 H (3.5-10.8) 10^3/uL RBC 4.80 (3.70-4.87) 10^6 /uL Hgb 14.2 (12.0-16.0) g/dL Hct 41 (35-47) % MCV 85 (80-97) fL MCH 30 (27-31) pg MCHC 35 (31-36) g/dL RDW 13 (10-15) % Plt Count 391 (150-450) 10^3/uL MPV 8.1 (7.4-10.4) fL Neut % (Auto) 63.2 % Lymph % (Auto) 26.7 % Daggett % (Auto) 7.8 % Eos % (Auto) 1.9 % Baso % (Auto) 0.4 % Absolute Neuts (auto) 8.1 H (1.5-7.7) 10^3/ul Absolute Lymphs (auto) 3.4 (1.0-4.8) 10^3/ul Absolute Monos (auto) 1.0 H (0-0.8) 10^3/ul Absolute Eos (auto) 0.2 (0-0.6) 10^3/ul Absolute Basos (auto) 0.1 (0-0.2) 10^3/ul Absolute Nucleated RBC 0.0 10^3/ul Nucleated RBC % 0.0 Sodium 139 (135-145) mmol/L Potassium 3.5 (3.5-5.0) mmol/L Chloride 107 (101-111) mmol/L Carbon Dioxide 26 (22-32) mmol/L Anion Gap 6 (2-11) mmol/L BUN 9 (6-24) mg/dL Creatinine 0.71 (0.51-0.95) mg/dL Est GFR ( Amer) 124.6 (>60) Est GFR (Non-Af Amer) 102.9 (>60) BUN/Creatinine Ratio 12.7 (8-20) Glucose 105 H (70-100) mg/dL Lactic Acid 0.8 (0.5-2.0) mmol/L Calcium 9.9 (8.6-10.3) mg/dL Total Bilirubin 0.30 (0.2-1.0) mg/dL AST 17 (13-39) U/L ALT 16 (7-52) U/L Alkaline Phosphatase 51 (34-104) U/L C-Reactive Protein 3.85 (<8.01) mg/L Total Protein 7.5 (6.4-8.9) g/dL Albumin 4.3 (3.2-5.2) g/dL Globulin 3.2 (2-4) g/dL Albumin/Globulin Ratio 1.3 (1-3) Beta HCG, Quant < 0.60 mIU/mL Urine Color Urine Appearance Urine pH (5-9) Ur Specific Buchanan (1.010-1.030) Urine Protein (Negative) Urine Ketones (Negative) Urine Blood (Negative) Urine Nitrate (Negative) Urine Bilirubin (Negative) Urine Urobilinogen (Negative) Ur Leukocyte Esterase (Negative) Urine WBC (Auto) (Absent) Urine RBC (Auto) (Absent) Ur Squamous Epith Cells (Absent) Urine Bacteria (Absent) Urine Glucose (Negative) 10/18/19 Range/Units 21:18 WBC (3.5-10.8) 10^3/uL RBC (3.70-4.87) 10^6 /uL Hgb (12.0-16.0) g/dL Hct (35-47) % MCV (80-97) fL MCH (27-31) pg MCHC (31-36) g/dL RDW (10-15) % Plt Count (150-450) 10^3/uL MPV (7.4-10.4) fL Neut % (Auto) % Lymph % (Auto) % Daggett % (Auto) % Eos % (Auto) % Baso % (Auto) % Absolute Neuts (auto) (1.5-7.7) 10^3/ul Absolute Lymphs (auto) (1.0-4.8) 10^3/ul Absolute Monos (auto) (0-0.8) 10^3/ul Absolute Eos (auto) (0-0.6) 10^3/ul Absolute Basos (auto) (0-0.2) 10^3/ul Absolute Nucleated RBC 10^3/ul Nucleated RBC % Sodium (135-145) mmol/L Potassium (3.5-5.0) mmol/L Chloride (101-111) mmol/L Carbon Dioxide (22-32) mmol/L Anion Gap (2-11) mmol/L BUN (6-24) mg/dL Creatinine (0.51-0.95) mg/dL Est GFR ( Amer) (>60) Est GFR (Non-Af Amer) (>60) BUN/Creatinine Ratio (8-20) Glucose (70-100) mg/dL Lactic Acid (0.5-2.0) mmol/L Calcium (8.6-10.3) mg/dL Total Bilirubin (0.2-1.0) mg/dL AST (13-39) U/L ALT (7-52) U/L Alkaline Phosphatase (34-104) U/L C-Reactive Protein (<8.01) mg/L Total Protein (6.4-8.9) g/dL Albumin (3.2-5.2) g/dL Globulin (2-4) g/dL Albumin/Globulin Ratio (1-3) Beta HCG, Quant mIU/mL Urine Color Lana Urine Appearance Cloudy Urine pH 5.0 (5-9) Ur Specific Buchanan 1.031 H (1.010-1.030) Urine Protein Negative (Negative) Urine Ketones 1+ A (Negative) Urine Blood Negative (Negative) Urine Nitrate Negative (Negative) Urine Bilirubin Negative (Negative) Urine Urobilinogen Positive A (Negative) Ur Leukocyte Esterase Trace A (Negative) Urine WBC (Auto) 1+(6-10/hpf) A (Absent) Urine RBC (Auto) Absent (Absent) Ur Squamous Epith Cells Present A (Absent) Urine Bacteria Absent (Absent) Urine Glucose Negative (Negative) Result Diagrams: 10/18/19 20:19 10/18/19 20:19 Lab Statement: Any lab studies that have been ordered have been reviewed, and results considered in the medical decision making process. - CT abd CT Interpretation Completed By: Radiologist Summary of CT Findings: IMPRESSION: No CT findings to correlate with patient's symptomatology. Specifically no appendicitis. - Ultrasound No standard instances Ultrasound Interpretation Completed By: Radiologist Summary of Ultrasound Findings: IMPRESSION: 1. Sonographically normal uterus and ovaries. 2. Well-positioned IUD. Re-Evaluation - Re-Evaluation First Eval Re-Evaluation Time: 22:07 Change: Worse Comment: pain more intense in RLQ and is now vomiting Second Eval Re-Evaluation Time: 23:27 Change: Improved Comment: Patient is feeling much better. Resting comfortably. Abdominal Pain Fem Course/Dx - Course Course Of Treatment: 24 year old female presents with right lower quadrant for past 3 days. She was seen here and had a negative CT and ultrasound. Seen at [facility] yesterday and had a normal exam. States the pain worse. admits to to nausea and vomiting. On exam tenderness RLQ. White blood count 12.8. CRP normal. Ultrasound showed no cyst or torsion. pain became more intense. With more intense pain will get a CT. CT shows no acute findings. will discharge with bentyl. patient understand and agrees with plan. - Diagnoses Differential Diagnosis: Positive: Ovarian Cyst, Urinary Tract Infection, Other - ovarian torsin Provider Diagnoses: Abdominal pain Discharge ED - Sign-Out/Discharge Documenting (check all that apply): Patient Departure - Discharge Plan Condition: Good Disposition: HOME Prescriptions: Dicyclomine CAP* [Bentyl CAP*] 10 mg PO TID #30 cap Patient Education Materials: Acute Abdominal Pain (ED) Referrals: [facility] [place] [facility] REFERR[facility] [Outside] Additional Instructions: take dicyclomine up to three times a day Eat a bland diet follow up with primary within 5 days Return to ED if develop any new or worsening symptoms - Billing Disposition and Condition Condition: GOOD Disposition: Home
[2019-10-18] MEDS ORDERED: Ondansetron INJ* 2 MG/ML VIAL IV ONE (21:56)
[2019-10-18] MEDS ORDERED: NS 0.9% 1000 ML** 1,000 ML IV ONE (21:56)
[2019-10-18] MEDS ORDERED: Morphine 4 MG/ML VIAL (1 ml) 4 MG/ML VIAL IV ONE (21:57)
[2019-10-18] MEDS ORDERED: Iohexol 300* (CONTRAST) 10 ML SDV IV ONE (22:29)
[2019-10-18] MEDS ORDERED: Metoclopramide IV* 5 MG/ML 2 ML VIAL IV SLOW PU ONE (23:30)
[2019-10-19] MEDS ORDERED: Dicyclomine CAP* 10 MG PO ONE (01:24)
[2019-10-19 01:58] VITALS: BP 92/50
== END 2019-10-19 02:00 | disposition home or self-care (01) ==
LOC: ED 19:07
DX: R10.9 Unspecified abdominal pain (principal); J45.909 Unspecified asthma, uncomplicated; K21.9 Gastro-esophageal reflux disease without esophagitis; F41.9 Anxiety disorder, unspecified; F90.9 Attention-deficit hyperactivity disorder, unspecified type; F17.200 Nicotine dependence, unspecified, uncomplicated; Z90.89 Acquired absence of other organs; Z88.6 Allergy status to analgesic agent; Z88.5 Allergy status to narcotic agent; Z88.0 Allergy status to penicillin
CPT/HCPCS: 36415; 74177; 76830; 80053; 81003; 81015; 83605; 84702; 85025; 86140; 87086; 96361; 96374; 96375; 99283; A9270-GY; J2270; J2405; J2765; Q9967